=== PATIENT | male | born 1935 | race Caucasian/White ===

== ENCOUNTER 2020-06-28 17:11 | Emergency (ER) | payer MEDICARE, SELFPAY ==
[2020-06-28 18:10] VITALS: BP 129/75; PULSE 82; RESP 18; TEMP 36.8; O2SAT 99; BMI 29.1
[2020-06-28 18:56] LABS: Add Manual Diff / Slide Review NO; Basophils Absolute Auto 0 /uL (0-100); Basophils Percent Auto 0.5 % (0-2); Eosinophils Absolute Auto 0 /uL (0-450); Eosinophils Percent Auto 0.7 % (2-4); Hematocrit 45.3 % (41-53); Hemoglobin 15.2 g/dL (13.5-17.5); Lymphocytes Absolute Auto 600 /uL (1100-4500); Mean Corpuscular HGB Conc 33.5 % (30-36); Mean Corpuscular Hemoglobin 32.7 PG (26-34); Mean Corpuscular Volume 97.7 fL (80-100); Monocytes Absolute Auto 600 /uL (0-900); Monocytes Percent Auto 8.4 % (3-14); Neutrophils Absolute Auto 6100 /uL (1500-7000); Neutrophils Percent Auto 82.4 % (50-75); Platelet Count 120 X10^3/uL (150-400); Red Blood Cell Count 4.64 X10^6/uL (4.5-5.9); White Blood Cell Count 7.4 X10^3/uL (4.5-11.0)
[2020-06-28 19:04] LABS: INR 2.3 (0.9-1.3); Prothrombin Time 26.3 SECONDS (10.1-12.7)
[2020-06-28 19:07] LABS: PTT Partial Thromboplastin Tim 48 SECONDS (26.4-36.2)
[2020-06-28 19:09] LABS: Alanine Aminotransferase 31 IU/L (<50); Albumin 3.8 g/dL (3.5-5.0); Albumin Globulin Ratio 1.2 (1.0-2.8); Alkaline Phosphatase 67 U/L (38-126); Aspartate Aminotransferase 28 IU/L (17-59); BUN Creatinine Ratio 16.2 (6-22); Bilirubin Total 0.8 mg/dL (0.2-1.3); Blood Urea Nitrogen 23 mg/dL (9-20); Calcium 8.8 mg/dL (8.4-10.2); Carbon Dioxide 24 mmol/L (22-32); Chloride 111 mmol/L (98-107); Creatine Kinase 55 U/L (55-170); Estimated Glomerular Filt Rate 47.5 mL/min (>60); Globulin 3.1 g/dL (1.7-4.1); Glucose 103 mg/dL (80-110); HEMOLYSIS < 15 (0-50); Lipase 79 U/L (23-300); Potassium 3.9 mmol/L (3.4-5.1); Sodium 138 mmol/L (137-145); Total Protein 6.9 g/dL (6.3-8.2)
[2020-06-28 19:20] LABS: Troponin I < 0.012 ng/mL (0.01-0.034)
[2020-06-28 21:25] VITALS: BP 139/68; PULSE 70; RESP 18; O2SAT 96
[2020-06-28 22:30] VITALS: BP 117/55; PULSE 69; O2SAT 96
[2020-06-28 23:30] VITALS: BP 126/60; PULSE 64; O2SAT 94
[2020-06-28] MEDS: chlordiazePOXIDE 25 MG CAPSULE PO ×2 (23:37→23:47)
[2020-06-28] MEDS: MORPHINE IR 15 MG TABLET PO (23:37)
--- NOTE | 2020-06-29 00:13 | ED.EXTPRO ---
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 Apparently had a cellulitis of the left ankle and was treated at [facility] 14 months ago. Three weeks ago he had a cellulitis the left hand again treated with Keflex. [place] that things were getting better. Over last week he has noticed that wrist hands and feet have all been a bit more swollen and tender than previously. Tonight he was complaining of increasing pains the left side of his ankle and presents concerned that he is developing another episode of cellulitis. Related Data Home Medications Medication Instructions Recorded Confirmed prednisone 4 mg PO #0 04/03/16 morphine 15 mg PO Q6HP PRN #0 tab 04/06/16 06/28/20 betamethasone dipropionate 0.05 % TOPICAL PRN PRN 06/28/20 06/28/20 chlordiazepoxide HCl 25 mg PO BID 06/28/20 06/28/20 diclofenac sodium 1 % TOPICAL PRN PRN 06/28/20 06/28/20 warfarin 5 mg PO DAILY 06/28/20 06/28/20 Previous Rx's Medication Instructions Recorded omeprazole 20 mg PO BID #60 tab 04/07/16 cephalexin 500 mg PO TID #21 cap 06/29/20 Allergies Allergy/AdvReac Type Severity Reaction Status Date / Time ciprofloxacin AdvReac Unknown NEUROPATHY Verified 06/28/20 18:18 TO FEET fluroquinolones Allergy Severe NEUROPATHY Uncoded 06/28/20 18:18 TO FEET. Review of Systems Review of Systems Narrative: Pertinent positive and negative findings as per HPI Remainder of review of systems is otherwise unremarkable for Constitutional: Fevers, chills, weakness ENT: No sore throat, neck pain, ear pain CV: Chest pain, palpitations, dyspnea on exertion Respiratory: Cough, wheeze, dyspnea GI: Nausea, vomiting, diarrhea, change in bowel habits, black or bloody stools : Dysuria, hematuria, flank pain MS: Muscle weakness, Skin: Rashes, nonhealing lesions Neuro: Syncope, dizziness, tingling Patient History Medical History Anticoagulated on Coumadin (Acute) Cellulitis (Acute) Social History Smoking Status: Never smoker Smoking Status: Never smoker alcohol intake frequency: 0-2 drinks per day Substance Use Type: does not use Exam Narrative Exam Narrative: General: Healthy appearing, in no acute distress. Able to give a are rambling and extended history. Well-nourished well-developed HEENT: Moist mucous membranes, normal sclera with reactive pupils, Neck: No JVD, supple Respiratory: Lungs are clear to auscultation, no wheezing no rales no rhonchi. Full and symmetrical air movement Cardiac: Regular rate and rhythm no murmurs no bruits Abdomen: Soft nontender good bowel tones, no flank pain Skin: Warm and dry, quite thin with hemosiderin deposits over the hands with no increased redness. Mild erythema and warmth in the lateral aspect of the ankle approximately 4 x 8 cm with no abscess. Neurologic: Grossly neurologically intact with no obvious asymmetries or abnormalities Extremities: No trauma, well perfused. Mild edema with with wrists bilaterally. Mild ankle edema bilaterally without chronic venous stasis changes Psych: Cooperative, slowed speech, tangential difficulty with focus Initial Vital Signs Initial Vital Signs: Vital Signs Temperature 98.3 F 06/28/20 18:10 Pulse Rate 82 06/28/20 18:10 Respiratory Rate 18 06/28/20 18:10 Blood Pressure 129/75 06/28/20 18:10 Pulse Oximetry 99 06/28/20 18:10 Course Orders Ordered: ED Orders 06/28/20 18:19 EKG-12 Lead Stat 06/28/20 18:49 Complete Blood Count AUTO DIFF Stat Comprehensive Metabolic Panel Stat Lipase Stat Partial Thromboplastin Time Stat Prothrombin Time INR Stat Troponin & CK Cardiac Panel Stat Discontinued Medications Chlordiazepoxide HCl (Librium) 25 mg PO NOW ONE Stop: 06/28/20 22:59 Last Admin: 06/28/20 23:37 Dose: 25 mg Documented by: AG Chlordiazepoxide HCl (Librium) 25 mg PO NOW ONE Stop: 06/28/20 23:25 Last Admin: 11/13/20 23:47 Dose: 25 mg Documented by: AG Ceftriaxone Sodium/Dextrose (Rocephin) 1 gm in 50 mls @ 100 mls/hr IV NOW ONE Stop: 06/29/20 01:03 Last Infusion: 06/29/20 01:10 Dose: 0 mls/hr Documented by: Admin: 06/29/20 00:40 Dose: 100 mls/hr Documented by: GABE Morphine Sulfate (Morphine Ir) 15 mg PO NOW ONE Stop: 06/28/20 23:00 Last Admin: 06/28/20 23:37 Dose: 15 mg Documented by: AG Vital Signs Vital signs: Vital Signs - 8 hr 06/28/20 21:25 06/28/20 22:30 06/28/20 23:30 Pulse Rate 70 69 64 Respiratory Rate 18 Blood Pressure 139/68 117/55 L 126/60 Pulse Oximetry 96 96 94 06/29/20 00:47 Pulse Rate 67 Respiratory Rate 16 Blood Pressure 147/64 H Pulse Oximetry 94 MDM - Extremity (Nontraumatic) Medical Records Attestation: I reviewed the patient's medical records. Lab Data Attestation: I reviewed the patient's lab results. Result diagrams: 06/28/20 18:49 06/28/20 18:49 Labs: Lab Results 06/28/20 06/28/20 06/28/20 Range/Units 18:49 18:49 18:49 WBC 7.4 (4.5-11.0) X10^3/uL RBC 4.64 (4.5-5.9) X10^6/uL Hgb 15.2 (13.5-17.5) g/dL Hct 45.3 (41-53) % MCV 97.7 (80-100) fL MCH 32.7 (26-34) PG MCHC 33.5 (30-36) % RDW 14.0 (11.6-14.8) % Plt Count 120 L (150-400) X10^3/uL Neut % (Auto) 82.4 H (50-75) % Lymph % (Auto) 8.0 L (25-40) % [place] % (Auto) 8.4 (3-14) % Eos % (Auto) 0.7 L (2-4) % Baso % (Auto) 0.5 (0-2) % Neut # (Auto) 6100 (1148-2046) /uL Lymph # (Auto) 600 L (6752-6206) /uL [place] # (Auto) 600 (0-900) /uL Eos # (Auto) 0 (0-450) /uL Baso # (Auto) 0 (0-100) /uL PT 26.3 H (10.1-12.7) SECONDS INR 2.3 H (0.9-1.3) APTT 48 H (26.4-36.2) SECONDS Sodium 138 (137-145) mmol/L Potassium 3.9 (3.4-5.1) mmol/L Chloride 111 H (98-107) mmol/L Carbon Dioxide 24 (22-32) mmol/L BUN 23 H (9-20) mg/dL Creatinine 1.42 H (0.66-1.25) mg/dL Estimated GFR 47.5 L (>60) mL/min BUN/Creatinine Ratio 16.2 (6-22) Glucose 103 (80-110) mg/dL Calcium 8.8 (8.4-10.2) mg/dL Total Bilirubin 0.8 (0.2-1.3) mg/dL AST 28 (17-59) IU/L ALT 31 (<50) IU/L Alkaline Phosphatase 67 (38-126) U/L Total Creatine Kinase 55 (55-170) U/L CK-MB (CK-2) TNP CK-MB (CK-2) Rel Index TNP Troponin I < 0.012 (0.01-0.034) ng/mL Total Protein 6.9 (6.3-8.2) g/dL Albumin 3.8 (3.5-5.0) g/dL Globulin 3.1 (1.7-4.1) g/dL Albumin/Globulin Ratio 1.2 (1.0-2.8) Lipase 79 (23-300) U/L ECG Data Attestation EKG: I personally reviewed and interpreted this ECG as follows: Interpretation: Sinus rhythm at a rate of 75 Normal intervals, normal axis No acute ischemic changes MDM Narrative Medical decision making narrative: 84-year-old gentleman with mild peripheral edema prior history of cellulitis concerned that he again has cellulitis. Minimal erythema on the lateral portion of the ankle with slight increased pain. Certainly no evidence of sepsis necrotizing fasciitis, renal failure, congestive heart failure, liver failure or other explanations for the mild edema. I believe the cognitive slowing and tangential thinking is due to the recently administered 15 mg of morphine and 50 mg of Librium. He is given 2 g of IV ceftriaxone in the emergency department and discharged home with a week of Keflex. Will encourage him to follow-up with his primary care physician. He is safe for home discharge Discharge Plan Departure Patient Disposition: Home Clinical Impression: Cellulitis Qualifiers: Site of cellulitis: extremity Site of cellulitis of extremity: lower extremity Laterality: left Qualified Code(s): L03.116 - Cellulitis of left lower limb Edema Qualifiers: Edema type: unspecified Qualified Code(s): R60.9 - Edema, unspecified Instructions: DI for Cellulitis -- Adult Activity Restrictions/Additional Instructions: Thank you for coming in today It does look like you are developing a mild cellulitis on the outside of your left ankle. I have begun antibiotics in the emergency room to treat this. You will need 7 additional days of oral antibiotics. I have given you a prescription for cephalexin that will need to be filled today. It would be best to take your 1st pill later this afternoon. I do not have a good explanation for that increased swelling your noticing around her ankles and wrists that seem to be causing increasing pain in your hands and feet. Fortunately I do not see signs of overwhelming infection (sepsis), nor kidney failure, liver failure or heart failure. Unfortunately there are things that I am not able to completely figure out in the emergency room and they will require your primary care doctor to address. Please follow-up with your primary care doctor within the next week I hope you feel better Prescriptions: New cephalexin 500 mg capsule 500 mg PO TID Qty: 21 RF: 0 No Action prednisone 1 MG tablet 4 mg PO Qty: 0 RF: 0 morphine 15 MG tablet 15 mg PO Q6HP PRN (Reason: Pain (Scale Score 1-3)) Qty: 0 RF: 0 omeprazole 20 MG tablet,delayed release (DR/EC) 20 mg PO BID Qty: 60 RF: 0 chlordiazepoxide HCl 25 mg capsule 25 mg PO BID RF: 0 warfarin 5 mg tablet 5 mg PO DAILY RF: 0 betamethasone dipropionate 0.05 % ointment 0.05 % TOPICAL PRN PRN (Reason: Pain (Scale Score 1-3)) RF: 0 diclofenac sodium 1 % gel 1 % TOPICAL PRN PRN (Reason: pain) RF: 0 Referrals: Yuriy Landa MD [Primary Care Provider] -
[2020-06-29] MEDS: CEFTRIAXONE 1 GM/50 ML FROZ.PIGGY IV (00:40)
[2020-06-29 00:47] VITALS: BP 147/64; PULSE 67; RESP 16; O2SAT 94
[2020-06-29 04:14] VITALS: BP 121/61; PULSE 65; RESP 18; O2SAT 96
== END 2020-06-29 04:15 | disposition home or self-care (01) ==
PROVIDERS: Emergency Medicine; Emergency Provider Emergency Medicine; PCP Family Medicine
DX: L03.116 Cellulitis of left lower limb (principal); R60.9 Edema, unspecified; I82.409 Acute embolism and thrombosis of unspecified deep veins of unspecified lower extremity; Z79.01 Long term (current) use of anticoagulants
CPT/HCPCS: 36415; 80053; 82550; 83690; 84484; 85025; 85610; 85730; 93005; 93041; 96365; 99284

== ENCOUNTER → 2021-01-06 10:04 | Outpatient (CLI) | payer MEDICARE, OTHER, SELFPAY ==
[2021-01-06 19:13] LABS: BUN Creatinine Ratio 23.1 (6-22); Blood Urea Nitrogen 36 mg/dL (9-20); Calcium 9.1 mg/dL (8.4-10.2); Carbon Dioxide 21 mmol/L (22-32); Chloride 111 mmol/L (98-107); Estimated Glomerular Filt Rate 42.5 mL/min (>60); Glucose 92 mg/dL (80-110); HEMOLYSIS < 15 (0-50); Potassium 3.8 mmol/L (3.4-5.1); Sodium 141 mmol/L (137-145)
== END ==
PROVIDERS: Internal Medicine Rheumatology; PCP Family Medicine; Visit Provider Family Medicine
DX: R74.8 Abnormal levels of other serum enzymes (principal)
CPT/HCPCS: 80048

== ENCOUNTER → 2021-02-06 08:08 | Outpatient (CLI) | payer MEDICARE, OTHER, SELFPAY ==
[2021-02-06 19:30] LABS: INR 3.4 (0.9-1.3); Prothrombin Time 39.6 SECONDS (10.1-12.7)
[2021-02-06 19:35] LABS: Alanine Aminotransferase 52 IU/L (<50); Albumin 3.3 g/dL (3.5-5.0); Albumin Globulin Ratio 1.6 (1.0-2.8); Alkaline Phosphatase 56 U/L (38-126); Aspartate Aminotransferase 28 IU/L (17-59); BUN Creatinine Ratio 23.6 (6-22); Bilirubin Total 0.4 mg/dL (0.2-1.3); Blood Urea Nitrogen 34 mg/dL (9-20); Carbon Dioxide 23 mmol/L (22-32); Chloride 113 mmol/L (98-107); Estimated Glomerular Filt Rate 46.6 mL/min (>60); Globulin 2.1 g/dL (1.7-4.1); Glucose 85 mg/dL (80-110); HEMOLYSIS < 15 (0-50); Potassium 3.6 mmol/L (3.4-5.1); Sodium 144 mmol/L (137-145); Total Protein 5.4 g/dL (6.3-8.2)
[2021-02-06 19:54] LABS: Hematocrit 42.3 % (41-53); Hemoglobin 13.8 g/dL (13.5-17.5); Mean Corpuscular HGB Conc 32.7 % (30-36); Mean Corpuscular Hemoglobin 31.2 PG (26-34); Mean Corpuscular Volume 95.3 fL (80-100); Platelet Count 213 X10^3/uL (150-400); Red Blood Cell Count 4.44 X10^6/uL (4.5-5.9); Red Cell Distribution Width 16.8 % (11.6-14.8); White Blood Cell Count 8.9 X10^3/uL (4.5-11.0)
[2021-02-06 19:55] LABS: Add Manual Diff / Slide Review YES
[2021-02-06 20:03] LABS: Thyroid Stimulating Hormone 3.43 uIU/mL (0.47-4.68)
[2021-02-06 20:32] LABS: Erythrocyte Sedimentation Rate 15 MM/HR (0-15)
[2021-02-06 21:17] LABS: Neutrophils Absolute Manual 5607 /uL (3000-5900); Total Cells Counted 100
[2021-02-06 21:18] LABS: Platelet Estimate Adequate on smear; RBC Morphology Normal Morphology
== END ==
PROVIDERS: PCP Family Medicine; Referring Provider Family Medicine; Visit Provider Family Medicine
DX: I49.9 Cardiac arrhythmia, unspecified (principal); R33.9 Retention of urine, unspecified; G89.4 Chronic pain syndrome; R31.9 Hematuria, unspecified; Z51.81 Encounter for therapeutic drug level monitoring; Z79.01 Long term (current) use of anticoagulants
CPT/HCPCS: 80053; 84443; 85007; 85025; 85610; 85651

== ENCOUNTER → 2021-04-24 07:55 | Outpatient (CLI) | payer MEDICARE, OTHER, SELFPAY ==
--- NOTE | 2021-04-24 | DI.ECHO.S_ITS ---
[facility]---------+ [facility] +---------+ : : [address] : : : : [id number] : : : : Phone: [phone]+ Echocardiogram Report + + :Name: ORVILLE NEVILLE Study Date: 04/24/2021 Height: 71 in : :[facility] ReadingLocation: Weight: 195 lb : : Gender: Male BSA: 2.1 m2 : :: 1935 Age: 85 yrs BP: 137/82 mmHg: :Reason For Study: Arrhythmia : :Ordering Physician: MARIO, : :LIZ Performed By: Leon Gilliam : :Referring: LIZ MARTIN : + + Interpretation Summary 1) Normal left ventricular thickness, size, wall motion, and systolic function (EF 55-60%). 2) Normal right ventricular size and function. 3) There is mild aortic regurgitation. 4) No prior Echo available for comparison. Procedure: A two-dimensional transthoracic echocardiogram with color flow and Doppler was performed. The study quality was technically adequate. There is no prior echocardiogram noted for this patient. Left Ventricle: The left ventricle is normal in size and wall thickness. Left ventricular systolic function is normal. The ejection fraction is estimated to be 55-60%. There are no focal wall motion abnormalities. Diastolic parameters suggest probable normal left ventricular diastolic function and normal filling pressures. Right Ventricle: The right ventricle is normal in size and function. Atria: Both atria are normal in size. There is no Doppler evidence for an interatrial shunt. Mitral Valve: The mitral valve is normal in structure and function. There is trace mitral regurgitation. Aortic Valve: There is mild aortic valve sclerosis. There is no aortic valve stenosis. There is mild aortic regurgitation. Tricuspid Valve: The tricuspid valve is normal in structure and function. There is mild tricuspid regurgitation. The right ventricular systolic pressure is estimated to be at least 27 mmHg based on an estimated right atrial pressure of 3 mm Hg. Pulmonic Valve: The pulmonic valve is not well visualized. Great Vessels: The aortic root is normal size. The dimensions of the ascending aorta are normal. The IVC is of normal diameter and collapses greater than 50% with a sniff. This suggests a low right atrial pressure of 3 mm Hg. Pericardium/ Pleura There is no pericardial effusion. There is no pleural effusion. MMode/2D Measurements & Calculations LVIDd: 3.6 cm LVOT diam: 2.0 cm LVIDs: 2.6 cm Ao root diam: 3.6 cm FS: 27.8 % asc Aorta Diam: 3.3 cm IVSd: 0.90 cm LVPWd: 0.80 cm LV morin. diameter/BSA (cm/m^2): 1.7 LV sys. diameter/BSA (cm/m^2): 1.2 LA dimension: 1.9 cm RA long axis: 4.7 cm LA A2 area: 11.2 cm2 LA A4 area: 12.2 cm2 LA length (vol): 3.8 cm LA vol: 30.2 ml LA vol index: 14.5 ml/m2 TAPSE_phl: 2.6 cm Doppler Measurements & Calculations Ao V2 max: 121.0 cm/sec LVOT Max Dilan: 104.0 cm/sec Ao V2 mean: 83.5 cm/sec LV V1 max P.3 mmHg Ao max P.0 mmHg LV V1 VTI: 19.6 cm Ao mean P.0 mmHg JAZMINE(I,D): 2.9 cm2 Ao V2 VTI: 21.6 cm JAZMINE(V,D): 2.7 cm2 sev ratio: 0.91 JAZMINE indexed to BSA (cm^2/m^2): 1.4 MV E max dilan: 57.8 cm/sec TR max dilan: 246.0 cm/sec MV A max dilan: 67.7 cm/sec TR max P.2 mmHg MV E/A: 0.85 PA V2 max: 128.0 cm/sec Med Peak E' Dilan: 5.8 cm/sec PA V2 mean: 88.7 cm/sec E/E' med: 10.0 PA mean P.0 mmHg Lat Peak E' Dilan: 10.9 cm/sec PA pr(Accel): 47.0 mmHg E/E' lat: 5.3 E/e' average: 7.6 MV dec time: 0.23 sec SV(LVOT): 61.6 ml AV VR_phl: 0.86 JAZMINE(VTI)/BSA_phl: 1.4 MV P1/2t-pr_phl: 67.0 msec Reading Physician:12:43 PM
== END ==
PROVIDERS: PCP Family Medicine; Referring Provider Internal Medicine Cardiovascular Disease; Visit Provider Internal Medicine Cardiovascular Disease
DX: I08.2 Rheumatic disorders of both aortic and tricuspid valves (principal); I49.9 Cardiac arrhythmia, unspecified
CPT/HCPCS: 93306

== ENCOUNTER 2021-04-24 12:48 | Emergency (ER) | payer MEDICARE, OTHER, SELFPAY ==
[2021-04-24] VITALS (7 sets, daily range): BP systolic 119–153; BP diastolic 60–86; PULSE 73–91; RESP 18–27; TEMP 36.3; O2SAT 96–99
--- NOTE | 2021-04-24 13:04 | DI.RAD.S_ITS ---
PROCEDURE: XR CHEST 1V INDICATIONS: chest pain TECHNIQUE: One view of the chest was acquired. COMPARISON: [facility], , CHEST 1 VIEW, 04/05/2016, 14:07. FINDINGS: Surgical changes and devices: None. Lungs and pleura: Lungs are clear. No pleural effusions or pneumothorax. Mediastinum: Mediastinal contours appear normal. Heart size is normal. Bones and chest wall: No suspicious bony lesions. Overlying soft tissues appear unremarkable. IMPRESSION: No acute cardiopulmonary pathology. Dictated by: Danie Ayon M.D. on 04/24/2021 at 13:46 Approved by: Danie Ayon M.D. on 04/24/2021 at 13:53
--- NOTE | 2021-04-24 14:30 | ED_ITS ---
HPI - Recheck/Abnormal Lab/Rx General Chief Complaint: Recheck/Abnormal Lab/Rx Stated Complaint: Abnormal Echo- sent by Time Seen by Provider: 04/24/21 14:04 Source: patient and family Mode of arrival: Ambulatory Limitations: no limitations History of Present Illness HPI narrative: Patient is an 85-year-old male. Had an echocardiogram performed this morning as an outpatient. This is ordered by his inspector air carrier. He also has a history of rheumatoid arthritis. Has had swelling in bilateral lower extremities for the past several days/weeks and over the past 3 days has had weeping from his lower extremities. Has also had pain in his lower back but this is not new for him. Somewhat difficult to obtain an exact history of why he is here however what I can get from talking with the patient and his he was informed to come to the emergency department because initially what was described as some then abnormal bite his echocardiogram. He denies chest pain. No shortness of breath. It seems that he contacted his sanitation laborer because of the swelling in his lower extremities and he was sent here because of that swelling as well. He is not on diuretics. Related Data Home Medications Medication Instructions Recorded Confirmed betamethasone dipropionate 0.05 % 0.05 % TOPICAL PRN PRN 06/28/20 02/03/21 topical ointment diclofenac sodium 1 % topical gel 1 % TOPICAL PRN PRN 06/28/20 02/03/21 warfarin 5 mg tablet 5 mg PO DAILY 06/28/20 02/03/21 ergocalciferol (vitamin D2) PO 01/11/21 02/03/21 lidocaine 5 % topical patch 1 patch TOPICAL DAILY 01/11/21 02/03/21 multivitamin (Daily Multi-Vitamin) 1 tab PO DAILY 01/11/21 02/03/21 vitamin B complex [Vitamins B PO 01/11/21 02/03/21 Complex] duloxetine 60 mg capsule,delayed 60 mg PO DAILY 01/14/21 02/03/21 release nystatin TOPICAL 01/14/21 02/03/21 prednisolone 5 mg PO 03/06/21 03/06/21 prednisone 1 mg tablet 10 mg PO #0 tab 03/06/21 03/06/21 Previous Rx's Medication Instructions Recorded diazepam 5 mg tablet (Valium) 5 mg PO BEDTIME PRN #14 tab 03/26/21 diazepam 10 mg tablet 10 mg PO TID PRN 1 Days #30 tab 04/06/21 hydrocodone 5 mg-acetaminophen 325 1 tab PO BID PRN #60 tab 04/16/21 mg tablet furosemide 20 mg tablet (Lasix) 20 mg PO DAILY #30 tab 04/24/21 Allergies Allergy/AdvReac Type Severity Reaction Status Date / Time ciprofloxacin Allergy Unknown It made Verified 03/06/21 13:35 me feel awful - NEUROPATHY TO FEET - N/V fluoxetine Allergy Unknown Verified 03/06/21 13:35 levofloxacin Allergy Unknown Pain,Diarrhea, Verified 03/06/21 13:35 Nausea,Vomiting NSAIDS (Non-Steroidal Allergy Unknown Guts on Verified 03/06/21 13:35 Anti-Inflamma fire tramadol Allergy Unknown g Verified 03/06/21 13:35 fluroquinolones Allergy Severe NEUROPATHY Uncoded 03/06/21 13:35 TO FEET. Review of Systems Constitutional Comments: No fevers Cardiovascular Cardiovascular: Reports system reviewed and no additional complaints, except as documented Respiratory Respiratory: Reports system reviewed and no additional complaints, except as documented Musculoskeletal Musculoskeletal: Reports as per HPI Integumentary/Breasts Skin/Breast: Reports system reviewed and no additional complaints, except as documented and Reports as per HPI Neurologic Neurologic: Reports system reviewed and no additional complaints, except as documented Hematologic/Lymphatic On Anticoagulants: No Patient History Medical History Acute eczema of hand Alcohol dependence, uncomplicated Anticoagulated on Coumadin Anxiety Bacteriuria Benign prostatic hyperplasia with lower urinary tract symptoms Cellulitis Chronic kidney disease, stage 3 unspecified Hypercalcemia Macrocytosis Malignant melanoma of right upper limb, including shoulder Malignant melanoma of scalp and neck Malignant neoplasm of penis, unspecified Multiple fractures of ribs, left side, initial encounter for closed fracture Opioid dependence, uncomplicated Other specified diseases of blood and blood-forming organs Personal history of other malignant neoplasm of skin Phlebitis and thrombophlebitis of left femoral vein Polyneuropathy, unspecified Presence of ileostomy Repeated falls Rheumatoid arthritis Sedative, hypnotic or anxiolytic dependence, uncomplicated Spinal stenosis, 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, 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 Thrombocytopenia, unspecified 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, left knee Unspecified mood [affective] disorder Surgical History (Updated 01/11/21 @ 10:58 by Argenis Osorio) H/O ileostomy H/O laminectomy H/O total colectomy Social History Smoking Status: Never smoker Smoking Status: Never smoker alcohol intake frequency: 0-2 drinks per day Substance Use Type: does not use Exam Initial Vital Signs Initial Vital Signs: Vital Signs Temperature 97.4 F L 04/24/21 12:54 Pulse Rate 91 H 04/24/21 12:54 Respiratory Rate 18 04/24/21 12:54 Blood Pressure 133/70 04/24/21 12:54 Pulse Oximetry 99 04/24/21 12:54 Const General: cooperative HENMT Head: normal to inspection and normocephalic Resp Effort & Inspection: normal respiratory effort Cardio Rate: regular rate Skin Other: Does have a couple small skin wounds in his bilateral lower extremities but no signs of cellulitis. Neuro General: patient alert, patient awake, patient oriented x3 and moves all extre mities Extrem Other: Bilateral lower extremity edema from his mid foot to just distal to his knees. Psych Appearance: grossly normal and well kempt Course Orders Ordered: ED Orders 04/24/21 13:04 XR chest 1V Stat EKG-12 Lead Stat 04/24/21 14:17 BNP [NT-proBNP (BNP-Adult 18+)] Stat Complete Blood Count AUTO DIFF Stat Comprehensive Metabolic Panel Stat Lipase Stat Troponin & CK Cardiac Panel Stat Discontinued Medications Furosemide (Furosemide 40 Mg/4 Ml Vial) 40 mg IV NOW ONE Stop: 04/24/21 15:43 Last Admin: 04/24/21 16:03 Dose: 40 mg Documented by: JANETT Oxycodone/Acetaminophen (Oxycodone/Acetaminophen 5/325 Tablet) 1 tab PO NOW ONE Stop: 04/24/21 14:32 Last Admin: 04/24/21 14:36 Dose: 1 tab Documented by: JANETT Vital Signs Vital signs: Vital Signs - 8 hr 04/24/21 12:54 04/24/21 14:05 04/24/21 14:06 Temperature 97.4 F L Pulse Rate 91 H 78 83 Respiratory Rate 18 Blood Pressure 133/70 132/69 Pulse Oximetry 99 96 97 04/24/21 14:30 04/24/21 15:00 04/24/21 15:30 Temperature Pulse Rate 88 73 90 Respiratory Rate 22 19 27 H Blood Pressure 153/78 H 119/60 Pulse Oximetry 97 96 04/24/21 15:31 Temperature Pulse Rate 91 H Respiratory Rate Blood Pressure 134/86 Pulse Oximetry 97 MDM - Recheck/Abnormal Lab/Rx Medical Records Attestation: I reviewed the patient's medical records. Lab Data Attestation: I reviewed the patient's lab results. Result diagrams: 04/24/21 14:17 04/24/21 14:17 Labs: Lab Results 04/24/21 04/24/21 Range/Units 14:17 14:17 WBC 9.2 (4.5-11.0) X10^3/uL RBC 4.29 L (4.5-5.9) X10^6/uL Hgb 13.8 (13.5-17.5) g/dL Hct 42.0 (41-53) % MCV 97.8 (80-100) fL MCH 32.1 (26-34) PG MCHC 32.8 (30-36) % RDW 14.7 (11.6-14.8) % Plt Count 167 (150-400) X10^3/uL Neut % (Auto) 89.4 H (50-75) % Lymph % (Auto) 5.5 L (25-40) % [place] % (Auto) 4.6 (3-14) % Eos % (Auto) 0.3 L (2-4) % Baso % (Auto) 0.2 (0-2) % Neut # (Auto) 8200 H (0549-7760) /uL Lymph # (Auto) 500 L (0420-8430) /uL [place] # (Auto) 400 (0-900) /uL Eos # (Auto) 0 (0-450) /uL Baso # (Auto) 0 (0-100) /uL Sodium 141 (137-145) mmol/L Potassium 4.3 (3.4-5.1) mmol/L Chloride 115 H (98-107) mmol/L Carbon Dioxide 21 L (22-32) mmol/L BUN 41 H (9-20) mg/dL Creatinine 1.53 H (0.66-1.25) mg/dL Estimated GFR 43.5 L (>60) mL/min BUN/Creatinine Ratio 26.8 H (6-22) Glucose 97 (80-110) mg/dL Calcium 9.1 (8.4-10.2) mg/dL Total Bilirubin 0.3 (0.2-1.3) mg/dL AST 34 (17-59) IU/L ALT 43 (<50) IU/L Alkaline Phosphatase 50 (38-126) U/L Total Creatine Kinase 60 (55-170) U/L CK-MB (CK-2) TNP CK-MB (CK-2) Rel Index TNP Troponin I < 0.012 (0.01-0.034) ng/mL NT-Pro-B Natriuret Pep 169 (<450) pg/mL Total Protein 6.5 (6.3-8.2) g/dL Albumin 4.1 (3.5-5.0) g/dL Globulin 2.4 (1.7-4.1) g/dL Albumin/Globulin Ratio 1.7 (1.0-2.8) Lipase 635 H (23-300) U/L Imaging Data Chest x-ray: Radiologist's Impression: [address] [address] XRay Report Signed Patient: Osmar Johnson MR#: [id number] : 1935 Acct:[id number] Age/Sex: 85 / M Date of Service: 04/24/21 Loc: Accession Number: [id number] ?? Procedure: XR chest 1V Ordering Provider: Yuriy Jackson D.O. PROCEDURE:? XR CHEST 1V ? INDICATIONS:? chest pain ? TECHNIQUE:? One view of the chest was acquired.? ? COMPARISON:? [facility], , CHEST 1 VIEW, 04/05/2016, 14:07. ? FINDINGS:? ? Surgical changes and devices:? None.? ? Lungs and pleura:? Lungs are clear.? No pleural effusions or pneumothorax.? ? Mediastinum:? Mediastinal contours appear normal.? Heart size is normal.? ? Bones and chest wall:? No suspicious bony lesions.? Overlying soft tissues appear unremarkable.? ? IMPRESSION:? No acute cardiopulmonary pathology. ? ? Dictated by: Danie Ayon M.D. on 04/24/2021 at 13:46 ? ? Approved by: Danie Ayon M.D. on 04/24/2021 at 13:53?? ECG Data Attestation: I personally reviewed and interpreted this ECG as follows: Interpretation: Sinus rhythm Ventricular rate 82 Sinus rhythm with Normal QRS Normal QTC No ST T wave changes MDM Narrative Medical decision making narrative: His labs today are unremarkable. Review of his echocardiogram does not show any signs of any acute pathology. He is not clinically in heart failure. His BNP is unremarkable. His lower extremity swelling is not consistent with cellulitis. He has had blood clots in the past but he is on Coumadin and I have low suspicion for blood clots based on his presentation today. Reassured him of his symptoms. We will put him on Lasix for the next couple days. Will have him contact his primary doctor and also his inspector air carrier to order the echocardiogram for a follow-up. He was given return precautions. Both he and his expressed understanding and agreement. Discharge Plan Departure Patient Disposition: Home Clinical Impression: Bilateral lower extremity edema Instructions: Edema (Alternative Therapy), Edema Activity Restrictions/Additional Instructions: I do recommend that you start taking the Lasix as directed. Contact your primary doctor and also your inspector air carrier for a follow-up. Return to the em ergency department for any new or worsening symptoms Prescriptions: New furosemide [Lasix] 20 mg tablet 20 mg PO DAILY Qty: 30 RF: 0 No Action prednisone 1 mg tablet 10 mg PO Qty: 0 RF: 0 diazepam [Valium] 5 mg tablet 5 mg PO BEDTIME PRN (Reason: sedation) Qty: 14 RF: 0 diazepam 10 mg tablet 10 mg PO TID PRN (Reason: sedation) 1 Days Qty: 30 RF: 1 hydrocodone-acetaminophen 5-325 mg tablet 1 tab PO BID PRN (Reason: pain) Qty: 60 RF: 0 warfarin 5 mg tablet 5 mg PO DAILY RF: 0 betamethasone dipropionate 0.05 % ointment 0.05 % TOPICAL PRN PRN (Reason: Pain (Scale Score 1-3)) RF: 0 diclofenac sodium 1 % gel 1 % TOPICAL PRN PRN (Reason: pain) RF: 0 prednisolone 5 mg PO RF: 0 duloxetine 60 mg capsule,delayed release(DR/EC) 60 mg PO DAILY RF: 0 nystatin topical RF: 0 vitamin B complex PO RF: 0 lidocaine 5 % adhesive patch,medicated 1 patch topical DAILY RF: 0 multivitamin [Daily Multi-Vitamin] Tablet 1 tab PO DAILY RF: 0 ergocalciferol (vitamin D2) PO RF: 0 Referrals: Adelso Leal MD [Primary Care Provider] -
[2021-04-24 14:35] LABS: Add Manual Diff / Slide Review NO; Basophils Absolute Auto 0 /uL (0-100); Basophils Percent Auto 0.2 % (0-2); Eosinophils Absolute Auto 0 /uL (0-450); Eosinophils Percent Auto 0.3 % (2-4); Hemoglobin 13.8 g/dL (13.5-17.5); Lymphocytes Absolute Auto 500 /uL (1100-4500); Lymphocytes Percent Auto 5.5 % (25-40); Mean Corpuscular HGB Conc 32.8 % (30-36); Mean Corpuscular Hemoglobin 32.1 PG (26-34); Mean Corpuscular Volume 97.8 fL (80-100); Monocytes Absolute Auto 400 /uL (0-900); Monocytes Percent Auto 4.6 % (3-14); Neutrophils Absolute Auto 8200 /uL (1500-7000); Neutrophils Percent Auto 89.4 % (50-75); Platelet Count 167 X10^3/uL (150-400); Red Blood Cell Count 4.29 X10^6/uL (4.5-5.9); Red Cell Distribution Width 14.7 % (11.6-14.8); White Blood Cell Count 9.2 X10^3/uL (4.5-11.0)
[2021-04-24] MEDS: OXYCODONE/ACETAMINOPHEN 5/325 TABLET 1 TAB PO (14:36)
[2021-04-24 14:49] LABS: Alanine Aminotransferase 43 IU/L (<50); Albumin 4.1 g/dL (3.5-5.0); Albumin Globulin Ratio 1.7 (1.0-2.8); Alkaline Phosphatase 50 U/L (38-126); Aspartate Aminotransferase 34 IU/L (17-59); BUN Creatinine Ratio 26.8 (6-22); Bilirubin Total 0.3 mg/dL (0.2-1.3); Blood Urea Nitrogen 41 mg/dL (9-20); Calcium 9.1 mg/dL (8.4-10.2); Carbon Dioxide 21 mmol/L (22-32); Chloride 115 mmol/L (98-107); Creatine Kinase 60 U/L (55-170); Estimated Glomerular Filt Rate 43.5 mL/min (>60); Globulin 2.4 g/dL (1.7-4.1); Glucose 97 mg/dL (80-110); HEMOLYSIS 24 (0-50); Lipase 635 U/L (23-300); Potassium 4.3 mmol/L (3.4-5.1); Sodium 141 mmol/L (137-145); Total Protein 6.5 g/dL (6.3-8.2)
[2021-04-24 15:01] LABS: NT-proBNP (BNP-Adult 18+) 169 pg/mL (<450); Troponin I < 0.012 ng/mL (0.01-0.034)
[2021-04-24] MEDS: FUROSEMIDE 40 MG/4 ML VIAL IV (16:03)
== END 2021-04-24 17:03 | disposition home or self-care (01) ==
PROVIDERS: Emergency Provider Emergency Medicine; PCP Family Medicine
DX: R60.0 Localized edema (principal); R07.9 Chest pain, unspecified
CPT/HCPCS: 36415; 71045; 80053; 82550; 83690; 83880; 84484; 85025; 93005; 93306; 96374; 99284; J1940

== ENCOUNTER → 2021-05-07 10:25 | Outpatient (CLI) | payer MEDICARE, OTHER, SELFPAY ==
--- NOTE | 2021-05-07 | DI.US.S_ITS ---
PROCEDURE: US PERIPH VENOUS LOW EXTREM BI INDICATIONS: EDEMA; HX DVT TECHNIQUE: Real-time imaging, as well as color and pulse Doppler interrogation, were performed of the deep veins of both legs from the inguinal ligament to the popliteal fossa. COMPARISON: [facility], , PERIP.NORA EXT BILAT, 04/15/2016, 10:04. FINDINGS: Right: The common femoral, femoral and popliteal veins are normally compressible, and free of intraluminal thrombus. Color and pulse Doppler demonstrate normal phasic intravascular flow. There is normal augmentation response to distal compression maneuver. Left: A small amount of chronic, nonocclusive thrombus can be seen within the common femoral vein. No additional findings of left-sided deep venous thrombosis can be seen. The visualized posterior tibial veins and peroneal veins are negative. 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 Dictated by: Rene Mark M.D. on 05/07/2021 at 11:45 Approved by: Rene Mark M.D. on 05/07/2021 at 11:46
== END ==
PROVIDERS: PCP Family Medicine; Referring Provider Internal Medicine Rheumatology; Visit Provider Internal Medicine Rheumatology
DX: R60.0 Localized edema (principal); I82.502 Chronic embolism and thrombosis of unspecified deep veins of left lower extremity
CPT/HCPCS: 93970

== ENCOUNTER → 2021-07-21 15:48 | Outpatient (CLI) | payer MEDICARE, OTHER, SELFPAY ==
[2021-07-22 20:04] LABS: Bilirubin Urine UA NEGATIVE (NEGATIVE); Color Urine UA YELLOW; Glucose Urine UA NEGATIVE (Negative); Ketones Urine UA NEGATIVE (NEGATIVE); Leukocyte Esterase Urine UA 2+ (NEGATIVE); Nitrite Urine UA POSITIVE (Negative); Occult Blood Urine UA TRACE-INTACT (Negative); Protein Urine UA 2+ (Negative); Specific Gravity Urine UA <=1.005 (1.000-1.035); Urobilinogen Urine UA 0.2 E.U./dL (0.2); pH Urine UA 8.5 (4.5-8.0)
[2021-07-22 20:07] LABS: Appearance Urine UA Turbid
[2021-07-22 21:09] LABS: WBC Urine 5-10/HPF (0-5/HPF)
[2021-07-22 21:10] LABS: Granular Casts Urine 1-5/LPF; RBC Urine 5-10/HPF (0-5/HPF); Squamous Epithelial Cell Urine None Seen (0-5/HPF)
[2021-07-22 21:11] LABS: Amorphous Sediment Urine 4+; Bacteria Urine Many (>30); Culture Indicated Urine Specimen Cultured; Mucus Urine 3+ (Negative); Triple Phosphate Crystal Urine Few
[2021-07-24 00:21] LABS: Vitamin B12 602 pg/mL (239-931)
== END ==
PROVIDERS: PCP Family Medicine; Referring Provider Family Medicine; Visit Provider Family Medicine
DX: Z93.2 Ileostomy status (principal); R39.15 Urgency of urination
CPT/HCPCS: 81001; 82607; 87077; 87086; 87186

== ENCOUNTER → 2021-07-23 13:29 | Outpatient (CLI) | payer MEDICARE, OTHER, SELFPAY ==
[2021-07-23 19:31] LABS: Prothrombin Time 33.9 SECONDS (10.1-12.7)
[2021-07-23 19:47] LABS: Alanine Aminotransferase 31 IU/L (<50); Albumin 3.7 g/dL (3.5-5.0); Albumin Globulin Ratio 1.5 (1.0-2.8); Alkaline Phosphatase 86 U/L (38-126); Aspartate Aminotransferase 33 IU/L (17-59); BUN Creatinine Ratio 21.9 (6-22); Bilirubin Total 0.3 mg/dL (0.2-1.3); Blood Urea Nitrogen 32 mg/dL (9-20); Calcium 9.3 mg/dL (8.4-10.2); Carbon Dioxide 22 mmol/L (22-32); Chloride 107 mmol/L (98-107); Estimated Glomerular Filt Rate 45.8 mL/min (>60); Gamma Glutamyl Transpeptidase 27 U/L (15-73); Globulin 2.4 g/dL (1.7-4.1); Glucose 117 mg/dL (80-110); HEMOLYSIS < 15 (0-50); Hemoglobin 11.8 g/dL (13.5-17.5); Lipase 231 U/L (23-300); Mean Corpuscular HGB Conc 32.9 % (30-36); Mean Corpuscular Hemoglobin 32.1 PG (26-34); Mean Corpuscular Volume 97.4 fL (80-100); Platelet Count 247 X10^3/uL (150-400); Potassium 4.2 mmol/L (3.4-5.1); Red Blood Cell Count 3.69 X10^6/uL (4.5-5.9); Red Cell Distribution Width 15.3 % (11.6-14.8); Sodium 138 mmol/L (137-145); Total Protein 6.1 g/dL (6.3-8.2); White Blood Cell Count 10.2 X10^3/uL (4.5-11.0)
[2021-07-23 20:18] LABS: Prostate Specific Antigen 2.31 ng/mL (0.10-4.00)
[2021-07-23 20:30] LABS: Neutrophils Absolute Manual 9180 /uL (3000-5900); Total Cells Counted 100
[2021-07-23 20:31] LABS: Anisocytosis 1+
== END ==
PROVIDERS: PCP Family Medicine; Visit Provider Family Medicine
DX: R60.0 Localized edema (principal); F10.20 Alcohol dependence, uncomplicated; N40.1 Benign prostatic hyperplasia with lower urinary tract symptoms; N18.30 Chronic kidney disease, stage 3 unspecified; Z51.81 Encounter for therapeutic drug level monitoring; Z79.01 Long term (current) use of anticoagulants
CPT/HCPCS: 80053; 82977; 83690; 84153; 85025; 85610

== ENCOUNTER → 2021-11-27 10:44 | Outpatient (CLI) | payer MEDICARE, OTHER, SELFPAY | PROVIDERS: PCP Family Medicine; Referring Provider Internal Medicine Rheumatology; Visit Provider Internal Medicine Rheumatology | DX: Z79.52 Long term (current) use of systemic steroids (principal); Z13.820 Encounter for screening for osteoporosis; M06.9 Rheumatoid arthritis, unspecified; M85.89 Other specified disorders of bone density and structure, multiple sites | CPT/HCPCS: 77080; 77086 ==

== ENCOUNTER → 2021-12-02 13:14 | Outpatient (CLI) | payer MEDICARE, OTHER, SELFPAY ==
[2021-12-02 18:23] LABS: Bilirubin Urine UA NEGATIVE (NEGATIVE); Color Urine UA YELLOW; Glucose Urine UA NEGATIVE (Negative); Ketones Urine UA NEGATIVE (NEGATIVE); Leukocyte Esterase Urine UA 1+ (NEGATIVE); Nitrite Urine UA NEGATIVE (Negative); Occult Blood Urine UA TRACE-LYSED (Negative); Protein Urine UA 1+ (Negative); Specific Gravity Urine UA 1.025 (1.000-1.035); Urobilinogen Urine UA 0.2 E.U./dL (0.2)
[2021-12-02 18:25] LABS: Appearance Urine UA Slightly Cloudy
[2021-12-02 19:28] LABS: Amorphous Sediment Urine 1+; Bacteria Urine Few (2-10); Culture Indicated Urine Specimen Cultured; Mucus Urine 1+ (Negative); RBC Urine 0-1/HPF (0-5/HPF); Squamous Epithelial Cell Urine 0-1 /HPF (0-5/HPF); WBC Urine 30-100/HPF (0-5/HPF)
== END ==
PROVIDERS: PCP Family Medicine; Visit Provider Family Medicine
DX: N39.0 Urinary tract infection, site not specified (principal)
CPT/HCPCS: 81001; 87077; 87086; 87186

== ENCOUNTER → 2021-12-29 10:52 | Outpatient (CLI) | payer MEDICARE, OTHER, SELFPAY ==
[2021-12-29 19:25] LABS: HEMOLYSIS < 15 (0-50); Iron 81 ug/dL (49-181)
[2021-12-29 19:28] LABS: Erythrocyte Sedimentation Rate 22 MM/HR (0-15); Hemoglobin A1C% w Est Avg Glu 4.9 % (4.0-6.0)
[2021-12-29 19:29] LABS: Alanine Aminotransferase 25 IU/L (<50); Albumin 3.7 g/dL (3.5-5.0); Albumin Globulin Ratio 1.4 (1.0-2.8); Alkaline Phosphatase 52 U/L (38-126); Aspartate Aminotransferase 31 IU/L (17-59); BUN Creatinine Ratio 18.2 (6-22); Bilirubin Total 0.4 mg/dL (0.2-1.3); Blood Urea Nitrogen 36 mg/dL (9-20); Calcium 8.6 mg/dL (8.4-10.2); Carbon Dioxide 18 mmol/L (22-32); Chloride 115 mmol/L (98-107); Estimated Glomerular Filt Rate 32 mL/min (>60); Globulin 2.6 g/dL (1.7-4.1); Glucose 95 mg/dL (80-110); HEMOLYSIS < 15 (0-50); Potassium 4.3 mmol/L (3.4-5.1); Sodium 140 mmol/L (137-145); Total Protein 6.3 g/dL (6.3-8.2)
[2021-12-29 19:38] LABS: Hematocrit 37.5 % (41-53); Hemoglobin 12.3 g/dL (13.5-17.5); Mean Corpuscular HGB Conc 32.8 % (30-36); Mean Corpuscular Hemoglobin 31.7 PG (26-34); Mean Corpuscular Volume 96.7 fL (80-100); Platelet Count 193 X10^3/uL (150-400); Red Blood Cell Count 3.87 X10^6/uL (4.5-5.9); Red Cell Distribution Width 15.5 % (11.6-14.8); White Blood Cell Count 9.9 X10^3/uL (4.5-11.0)
[2021-12-29 19:40] LABS: Add Manual Diff / Slide Review YES
[2021-12-29 19:41] LABS: Percent Iron Saturation 25 % (20-50); Total Iron Binding Capacity 326 ug/dL (261-462); Transferrin 234 mg/dL (206-381)
[2021-12-29 19:43] LABS: Neutrophils Absolute Manual 7623 /uL (3000-5900); Total Cells Counted 100
[2021-12-29 19:44] LABS: Anisocytosis 1+
[2021-12-29 20:01] LABS: TSH w/ Reflex to FT4 2.21 uIU/mL (0.47-4.68)
[2021-12-29 20:07] LABS: Appearance Urine UA SL CLOUDY; Bilirubin Urine UA NEGATIVE (NEGATIVE); Color Urine UA YELLOW; Glucose Urine UA TRACE g/dL (Negative); Ketones Urine UA NEGATIVE (NEGATIVE); Leukocyte Esterase Urine UA TRACE (NEGATIVE); Nitrite Urine UA NEGATIVE (Negative); Occult Blood Urine UA TRACE-LYSED (Negative); Protein Urine UA 2+ (Negative); Specific Gravity Urine UA >=1.030 (1.000-1.035); Urobilinogen Urine UA 0.2 E.U./dL (0.2)
[2021-12-29 20:08] LABS: RBC Urine 0-1/HPF (0-5/HPF); Squamous Epithelial Cell Urine 0-1 /HPF (0-5/HPF); WBC Urine 30-100/HPF (0-5/HPF)
[2021-12-29 20:09] LABS: Bacteria Urine Moderate (10-30); Culture Indicated Urine Specimen Cultured
[2022-01-01 16:52] LABS: Albumin 3.8 g/dL (2.9-4.4); Alpha 1 Globulin 0.2 g/dL (0.0-0.4); Alpha 2 Globulin 0.8 g/dL (0.4-1.0); Beta 1 Globulin 0.8 g/dL (0.7-1.3); Gamma Globulin 0.5 g/dL (0.4-1.8); Protein, Total 6.1 g/dL (6.0-8.5)
== END ==
PROVIDERS: PCP Family Medicine; Visit Provider Family Medicine
DX: I49.9 Cardiac arrhythmia, unspecified (principal); G62.9 Polyneuropathy, unspecified; C90.00 Multiple myeloma not having achieved remission; D63.1 Anemia in chronic kidney disease; N18.31 Chronic kidney disease, stage 3a; N18.32 Chronic kidney disease, stage 3b; D64.9 Anemia, unspecified; N39.0 Urinary tract infection, site not specified; R31.9 Hematuria, unspecified
CPT/HCPCS: 80053; 81001; 83036; 83540; 83550; 84155; 84165; 84443; 85007; 85025; 85651; 87077; 87086; 87186

== ENCOUNTER → 2022-01-14 13:24 | Outpatient (CLI) | payer MEDICARE, OTHER, SELFPAY ==
[2022-01-14 20:20] LABS: Erythrocyte Sedimentation Rate 17 MM/HR (0-15)
[2022-01-14 20:25] LABS: TSH w/ Reflex to FT4 1.42 uIU/mL (0.47-4.68)
[2022-01-14 20:44] LABS: Vitamin B12 451 pg/mL (239-931)
== END ==
PROVIDERS: PCP Family Medicine; Visit Provider Family Medicine
DX: C90.00 Multiple myeloma not having achieved remission (principal); G62.9 Polyneuropathy, unspecified; R60.0 Localized edema; F11.90 Opioid use, unspecified, uncomplicated; G62.1 Alcoholic polyneuropathy; N18.30 Chronic kidney disease, stage 3 unspecified; N39.0 Urinary tract infection, site not specified
CPT/HCPCS: 82607; 83036; 84443; 85651

== ENCOUNTER → 2022-01-21 10:44 | Outpatient (CLI) | payer MEDICARE, OTHER, SELFPAY ==
[2022-01-21 11:30] LABS: COVID19 -Nasal RAPID Negative (Negative)
== END ==
PROVIDERS: PCP Family Medicine; Referring Provider Internal Medicine; Visit Provider Internal Medicine
DX: Z20.822 Contact with and (suspected) exposure to COVID-19 (principal)
CPT/HCPCS: 87635; C9803

== ENCOUNTER → 2022-01-21 10:46 | Outpatient (CLI) | payer MEDICARE, OTHER, SELFPAY ==
--- NOTE | 2022-01-23 08:11 | PM.PFT.1 ---
Pulmonary Function Test Referral & Results Date Patient Seen: 01/21/22 Requesting provider: Yeyo Munroe Indication: Shortness of breath Results: The spirometry demonstrates an FVC of 3.27 L which is 80% of predicted. The FEV1 was measured at 2.33 L which is 81% of predicted. The FEV1/FVC ratio was 71 which is 101% of predicted. Following the administration of bronchodilator there was a 31% improvement in FEF 25-75%. Lung volumes show an TGV of 3.28 L which is 79% of predicted. The diffusing capacity was measured at 19.26 which is 54% of predicted. No hemoglobin value was provided, so no correction for potential anemia could be made, if appropriate. The maximum voluntary ventilation was minimally reduced Interpretation: This study demonstrates possibly mild obstructive lung disease based on minimal reduction FEV1 although FEV1/FVC ratio is preserved there is some limited evidence of benefit in small airway flow after bronchodilator based on improvement in FEF 25-75% as above. Shape a flow volume loop also supports the presence of some degree of obstructive lung disease There is minimal restrictive lung disease present based on reduced lung volumes as above There is a moderate reduction in diffusing capacity suggesting disease at the capillary alveolar level as well Clinical correlation suggested
== END ==
PROVIDERS: PCP Family Medicine; Referring Provider Family Medicine; Visit Provider Family Medicine
DX: R06.09 Other forms of dyspnea (principal); J98.8 Other specified respiratory disorders; Z20.822 Contact with and (suspected) exposure to COVID-19
CPT/HCPCS: 87635; 94060; 94726; 94729; C9803

== ENCOUNTER → 2022-01-30 09:10 | Outpatient (CLI) | payer MEDICARE, OTHER, SELFPAY ==
[2022-01-31 02:25] LABS: NT-proBNP (BNP-Adult 18+) 264 pg/mL (<450)
[2022-01-31 14:42] LABS: D Dimer < 200 ng/mL (<230)
== END ==
PROVIDERS: PCP Family Medicine; Visit Provider Family Medicine
DX: R06.02 Shortness of breath (principal)
CPT/HCPCS: 83880; 85379

== ENCOUNTER → 2022-02-18 12:56 | Outpatient (CLI) | payer MEDICARE, OTHER, SELFPAY ==
[2022-02-19 04:38] LABS: BUN Creatinine Ratio 22.5 (6-22); Blood Urea Nitrogen 42 mg/dL (9-20); Calcium 8.6 mg/dL (8.4-10.2); Carbon Dioxide 18 mmol/L (22-32); Chloride 111 mmol/L (98-107); Estimated Glomerular Filt Rate 35 mL/min (>60); Glucose 110 mg/dL (80-110); HEMOLYSIS < 15 (0-50); Potassium 4.6 mmol/L (3.4-5.1); Sodium 137 mmol/L (137-145)
== END ==
PROVIDERS: PCP Family Medicine; Visit Provider Family Medicine
DX: Z12.5 Encounter for screening for malignant neoplasm of prostate (principal); R33.9 Retention of urine, unspecified; N18.32 Chronic kidney disease, stage 3b; I50.9 Heart failure, unspecified; J44.9 Chronic obstructive pulmonary disease, unspecified; M06.9 Rheumatoid arthritis, unspecified; R06.02 Shortness of breath; R60.0 Localized edema; N39.0 Urinary tract infection, site not specified
CPT/HCPCS: 80048; 87077; 87086; 87186; G0103

== ENCOUNTER → 2022-03-05 09:55 | Outpatient (CLI) | payer MEDICARE, OTHER, SELFPAY ==
[2022-03-05 20:10] LABS: Add Manual Diff / Slide Review NO; Basophils Absolute Auto 100 /uL (0-100); Basophils Percent Auto 0.8 % (0-2); Eosinophils Absolute Auto 200 /uL (0-450); Eosinophils Percent Auto 2.2 % (2-4); Hematocrit 36.7 % (41-53); Hemoglobin 12.1 g/dL (13.5-17.5); Lymphocytes Absolute Auto 900 /uL (1100-4500); Lymphocytes Percent Auto 10.8 % (25-40); Mean Corpuscular Hemoglobin 31.3 PG (26-34); Mean Corpuscular Volume 94.9 fL (80-100); Monocytes Absolute Auto 800 /uL (0-900); Neutrophils Absolute Auto 6300 /uL (1500-7000); Neutrophils Percent Auto 76.2 % (50-75); Platelet Count 233 X10^3/uL (150-400); Red Blood Cell Count 3.86 X10^6/uL (4.5-5.9); Red Cell Distribution Width 14.5 % (11.6-14.8); White Blood Cell Count 8.3 X10^3/uL (4.5-11.0)
[2022-03-05 21:14] LABS: BUN Creatinine Ratio 29.8 (6-22); Blood Urea Nitrogen 50 mg/dL (9-20); Calcium 8.8 mg/dL (8.4-10.2); Carbon Dioxide 21 mmol/L (22-32); Chloride 108 mmol/L (98-107); Estimated Glomerular Filt Rate 39 mL/min (>60); Glucose 93 mg/dL (80-110); Potassium 3.6 mmol/L (3.4-5.1); Sodium 140 mmol/L (137-145)
[2022-03-06 03:32] LABS: HEMOLYSIS < 15 (0-50); Vitamin B12 931 pg/mL (239-931)
== END ==
PROVIDERS: PCP Family Medicine; Visit Provider Family Medicine
DX: D64.9 Anemia, unspecified (principal); M06.9 Rheumatoid arthritis, unspecified; G89.4 Chronic pain syndrome; N18.32 Chronic kidney disease, stage 3b; S40.021A Contusion of right upper arm, initial encounter
CPT/HCPCS: 80048; 82607; 85025

== ENCOUNTER → 2022-03-19 13:24 | Outpatient (CLI) | payer MEDICARE, OTHER, SELFPAY | PROVIDERS: PCP Family Medicine; Visit Provider Specialist | DX: N40.0 Benign prostatic hyperplasia without lower urinary tract symptoms (principal); N21.0 Calculus in bladder; N39.0 Urinary tract infection, site not specified | CPT/HCPCS: 52000; 81002; 87077; 87086; 87186; 99215 ==

== ENCOUNTER → 2022-04-08 11:21 | Outpatient (CLI) | payer MEDICARE, OTHER, SELFPAY ==
[2022-04-08 19:53] LABS: Hematocrit 37.3 % (41-53); Hemoglobin 12.4 g/dL (13.5-17.5); Mean Corpuscular HGB Conc 33.2 % (30-36); Mean Corpuscular Hemoglobin 31.3 PG (26-34); Mean Corpuscular Volume 94.1 fL (80-100); Platelet Count 192 X10^3/uL (150-400); Red Blood Cell Count 3.96 X10^6/uL (4.5-5.9); Red Cell Distribution Width 15.5 % (11.6-14.8); White Blood Cell Count 9.5 X10^3/uL (4.5-11.0)
[2022-04-08 19:55] LABS: Add Manual Diff / Slide Review YES
[2022-04-08 19:58] LABS: BUN Creatinine Ratio 24.1 (6-22); Blood Urea Nitrogen 42 mg/dL (9-20); Calcium 8.7 mg/dL (8.4-10.2); Carbon Dioxide 19 mmol/L (22-32); Chloride 108 mmol/L (98-107); Estimated Glomerular Filt Rate 38 mL/min (>60); Glucose 91 mg/dL (80-110); HEMOLYSIS < 15 (0-50); Potassium 4.2 mmol/L (3.4-5.1); Sodium 137 mmol/L (137-145)
[2022-04-08 20:29] LABS: Anisocytosis 1+; Neutrophils Absolute Manual 8170 /uL (3000-5900); Total Cells Counted 100
== END ==
PROVIDERS: PCP Family Medicine; Visit Provider Family Medicine
DX: R33.9 Retention of urine, unspecified (principal); D64.9 Anemia, unspecified; N18.32 Chronic kidney disease, stage 3b
CPT/HCPCS: 80048; 85007; 85025

== ENCOUNTER → 2022-05-21 14:05 | Outpatient (CLI) | payer MEDICARE, OTHER, SELFPAY ==
[2022-05-21 19:56] LABS: Alanine Aminotransferase 32 IU/L (<50); Albumin 3.9 g/dL (3.5-5.0); Albumin Globulin Ratio 1.6 (1.0-2.8); Alkaline Phosphatase 57 U/L (38-126); Aspartate Aminotransferase 37 IU/L (17-59); Bilirubin Total 0.3 mg/dL (0.2-1.3); Bilirubin Unconjugated 0.3 mg/dL (0.0-1.1); Estimated Glomerular Filt Rate 29 mL/min (>60); Globulin 2.5 g/dL (1.7-4.1); HEMOLYSIS < 15 (0-50); Total Protein 6.4 g/dL (6.3-8.2)
[2022-05-21 19:58] LABS: Hematocrit 37.3 % (41-53); Mean Corpuscular HGB Conc 32.2 % (30-36); Mean Corpuscular Hemoglobin 30.8 PG (26-34); Mean Corpuscular Volume 95.7 fL (80-100); Platelet Count 211 X10^3/uL (150-400); Red Cell Distribution Width 15.4 % (11.6-14.8)
[2022-05-21 20:04] LABS: Add Manual Diff / Slide Review YES
[2022-05-21 20:45] LABS: Anisocytosis 1+; Neutrophils Absolute Manual 7020 /uL (3000-5900); Nucleated Red Blood Cells 1 #/Diff; Total Cells Counted 100
== END ==
PROVIDERS: Internal Medicine Rheumatology; PCP Family Medicine
DX: E53.8 Deficiency of other specified B group vitamins (principal); M06.00 Rheumatoid arthritis without rheumatoid factor, unspecified site; Z79.899 Other long term (current) drug therapy
CPT/HCPCS: 80076; 82565; 85007; 85025

== ENCOUNTER → 2022-06-23 12:48 | Outpatient (CLI) | payer MEDICARE, OTHER, SELFPAY ==
[2022-06-23 13:42] LABS: Appearance Urine UA CLEAR; Bilirubin Urine UA NEGATIVE (NEGATIVE); Color Urine UA YELLOW; Glucose Urine UA NEGATIVE (Negative); Ketones Urine UA NEGATIVE (NEGATIVE); Leukocyte Esterase Urine UA NEGATIVE (NEGATIVE); Nitrite Urine UA NEGATIVE (Negative); Occult Blood Urine UA 2+ (Negative); Protein Urine UA 1+ (Negative); Specific Gravity Urine UA 1.025 (1.000-1.035); Urobilinogen Urine UA 0.2 E.U./dL (0.2)
[2022-06-23 14:14] LABS: RBC Urine 1-5/HPF (0-5/HPF); Squamous Epithelial Cell Urine 1-5 /HPF (0-5/HPF); WBC Urine 5-10/HPF (0-5/HPF)
[2022-06-23 14:15] LABS: Bacteria Urine Moderate (10-30); Culture Indicated Urine Specimen Cultured; Granular Casts Urine 5-10/LPF; Hyaline Casts Urine 1-5/LPF
== END ==
PROVIDERS: PCP Family Medicine; Visit Provider Specialist
DX: N21.0 Calculus in bladder (principal); N39.0 Urinary tract infection, site not specified; N40.0 Benign prostatic hyperplasia without lower urinary tract symptoms
CPT/HCPCS: 81001; 87086

== ENCOUNTER → 2022-06-23 12:56 | Outpatient (CLI) | payer MEDICARE, OTHER, SELFPAY ==
--- NOTE | 2022-06-23 12:58 | DI.US.S_ITS ---
PROCEDURE: US ARTERIAL DUPLEX LE BI INDICATIONS: PAIN; POSSIBLE PAD TECHNIQUE: Color and pulse Doppler interrogation was performed of both lower extremity arterial systems, with image documentation. COMPARISON: None. FINDINGS: Right lower extremity: Common femoral artery: 71 cm/sec, with triphasic flow. Deep femoral artery: 49 cm/sec, with biphasic flow. Proximal superficial femoral artery: 87 cm/sec, with biphasic flow. Mid superficial femoral artery: 83 cm/sec, with biphasic flow. Distal superficial femoral artery: 66 cm/sec, with biphasic flow. Popliteal artery: 62 cm/sec, with biphasic flow. Posterior tibial artery: 41 cm/sec, with biphasic flow. Anterior tibial artery/dorsalis pedis: 83 cm/sec, with biphasic flow. Chi-scale imaging description: Negative Left lower extremity: Common femoral artery: 86 cm/sec, with triphasic flow. Deep femoral artery: 81 cm/sec, with triphasic flow. Proximal superficial femoral artery: 107 cm/sec, with biphasic flow. Mid superficial femoral artery: 131 cm/sec, with biphasic flow. Distal superficial femoral artery: 82 cm/sec, with biphasic flow. Popliteal artery: 73 cm/sec, with biphasic flow. Posterior tibial artery: 25 cm/sec, with biphasic flow. Anterior tibial artery/dorsalis pedis: 72 cm/sec, with biphasic flow. Chi-scale imaging description: Negative IMPRESSION: No evidence of arterial insufficiency to the bilateral lower extremities. Dictated by: Jarrod Jalloh M.D. on 06/23/2022 at 14:41 Transcribed by: SUMMER on 06/23/2022 at 14:43 Approved by: Jarrod Jalloh M.D. on 06/23/2022 at 16:40
== END ==
PROVIDERS: PCP Family Medicine; Referring Provider Family Medicine; Visit Provider Family Medicine
DX: R60.0 Localized edema (principal); N40.0 Benign prostatic hyperplasia without lower urinary tract symptoms; N21.0 Calculus in bladder; N39.0 Urinary tract infection, site not specified; N32.3 Diverticulum of bladder
CPT/HCPCS: 81001; 87086; 93925; 99215

== ENCOUNTER → 2022-06-30 11:32 | Outpatient (CLI) | payer MEDICARE, OTHER, SELFPAY ==
[2022-06-30 18:53] LABS: Add Manual Diff / Slide Review NO; Basophils Absolute Auto 100 /uL (0-100); Basophils Percent Auto 0.6 % (0-2); Eosinophils Absolute Auto 100 /uL (0-450); Eosinophils Percent Auto 0.6 % (2-4); Hematocrit 35.4 % (41-53); Hemoglobin 11.8 g/dL (13.5-17.5); Lymphocytes Absolute Auto 800 /uL (1100-4500); Lymphocytes Percent Auto 8.1 % (25-40); Mean Corpuscular HGB Conc 33.2 % (30-36); Mean Corpuscular Hemoglobin 30.9 PG (26-34); Mean Corpuscular Volume 93.2 fL (80-100); Monocytes Absolute Auto 600 /uL (0-900); Monocytes Percent Auto 6.1 % (3-14); Neutrophils Absolute Auto 8300 /uL (1500-7000); Neutrophils Percent Auto 84.6 % (50-75); Platelet Count 192 X10^3/uL (150-400); Red Cell Distribution Width 15.1 % (11.6-14.8); White Blood Cell Count 9.8 X10^3/uL (4.5-11.0)
[2022-06-30 18:59] LABS: Alanine Aminotransferase 31 IU/L (<50); Albumin 3.7 g/dL (3.5-5.0); Albumin Globulin Ratio 1.4 (1.0-2.8); Alkaline Phosphatase 58 U/L (38-126); Aspartate Aminotransferase 37 IU/L (17-59); BUN Creatinine Ratio 20.4 (6-22); Bilirubin Total 0.3 mg/dL (0.2-1.3); Blood Urea Nitrogen 37 mg/dL (9-20); C-Reactive Protein Quant < 0.5 mg/dL (<1.0); Calcium 8.4 mg/dL (8.4-10.2); Carbon Dioxide 19 mmol/L (22-32); Chloride 112 mmol/L (98-107); Estimated Glomerular Filt Rate 36 mL/min (>60); Globulin 2.6 g/dL (1.7-4.1); Glucose 89 mg/dL (80-110); HEMOLYSIS < 15 (0-50); Sodium 139 mmol/L (137-145); Total Protein 6.3 g/dL (6.3-8.2)
[2022-06-30 19:10] LABS: Appearance Urine UA CLEAR; Bilirubin Urine UA NEGATIVE (NEGATIVE); Color Urine UA YELLOW; Glucose Urine UA NEGATIVE (Negative); Ketones Urine UA NEGATIVE (NEGATIVE); Leukocyte Esterase Urine UA TRACE (NEGATIVE); Nitrite Urine UA NEGATIVE (Negative); Occult Blood Urine UA 2+ (Negative); Protein Urine UA 1+ (Negative); Specific Gravity Urine UA >=1.030 (1.000-1.035); Urobilinogen Urine UA 0.2 E.U./dL (0.2)
[2022-06-30 19:25] LABS: Amorphous Sediment Urine 1+; RBC Urine 1-5/HPF (0-5/HPF); Squamous Epithelial Cell Urine 1-5 /HPF (0-5/HPF); WBC Urine 5-10/HPF (0-5/HPF)
[2022-06-30 19:26] LABS: Bacteria Urine Few (2-10); Culture Indicated Urine Specimen Cultured; Mucus Urine 1+ (Negative)
[2022-06-30 19:31] LABS: Creatinine Urine Random 106.1 mg/dL; Protein (Total) Urine Random 74 mg/dL (0-12); Protein Creatinine Ratio Urine 0.69 GRAM/24H
[2022-06-30 19:43] LABS: Erythrocyte Sedimentation Rate 25 MM/HR (0-15)
[2022-06-30 20:02] LABS: Folate > 20.0 ng/mL (2.76-20.0)
[2022-07-03 19:45] LABS: Calcium 8.8 mg/dL (8.6-10.2); Parathyroid Hormone, Intact 60 pg/mL (15-65)
== END ==
PROVIDERS: Internal Medicine Nephrology; PCP Family Medicine; Visit Provider Internal Medicine Rheumatology
DX: Z51.81 Encounter for therapeutic drug level monitoring (principal); D64.9 Anemia, unspecified; E53.8 Deficiency of other specified B group vitamins; M06.00 Rheumatoid arthritis without rheumatoid factor, unspecified site; M19.041 Primary osteoarthritis, right hand; M19.042 Primary osteoarthritis, left hand; N18.32 Chronic kidney disease, stage 3b; R79.89 Other specified abnormal findings of blood chemistry; Z79.899 Other long term (current) drug therapy
CPT/HCPCS: 80053; 81001; 82310; 82570; 82746; 83970; 84156; 85025; 85651; 86140; 87077; 87086; 87186

== ENCOUNTER → 2022-07-03 07:34 | Outpatient (CLI) | payer MEDICARE, OTHER, SELFPAY ==
[2022-07-03 20:26] LABS: COVID19 - ORCAS (NP or Nasal) Negative (Negative)
== END ==
PROVIDERS: PCP Family Medicine; Visit Provider Family Medicine
DX: Z20.822 Contact with and (suspected) exposure to COVID-19 (principal); Z01.812 Encounter for preprocedural laboratory examination
CPT/HCPCS: C9803; U0003

== ENCOUNTER 2022-07-06 06:22 | Day surgery (SDC) | payer MEDICARE, OTHER, SELFPAY ==
[2022-07-02 13:54] VITALS: BMI 30.7
[2022-07-06] VITALS (16 sets, daily range): BP systolic 119–154; BP diastolic 62–88; PULSE 62–94; RESP 11–20; TEMP 36.1–37.1; O2SAT 95–100; BMI 30.7
--- NOTE | 2022-07-06 | PATH_ITS ---
[facility] Accession Number: [id number] . 01 Material submitted: . prostate - PROSTATE CHIPS . 01 Diagnosis: Prostate Chips, Transurethral Resection: Benign prostatic parenchyma with mild chronic inflammation and stromal/glandular hypertrophy. Benign urothelial mucosa also present. Negative for high-grade prostatic intraepithelial neoplasia and carcinoma. MRV 07/10/2022 1335 Local . 01 Electronically signed: . Antonio Tracy MD, Pathologist NPI- [id number] . 01 Gross description: . The specimen is received in formalin, labeled with the patient's name, , and prostate chips, and consists of multiple pink-melo rubbery soft tissue fragments weighing 12 g and aggregating to 6.3 x 5.7 x 0.9 cm. No lesions are identified. Also included within the container are multiple melo, hard fragments consistent with calculi measuring up to 0.2 cm in greatest dimension. All soft tissue fragments are submitted in cassettes A1-A7. ([id number]) /FRR 07/08/2022 0331 Local . 01 Pathologist provided ICD-10: N40.0 . 01 CPT . 371633 Specimen Comment: A courtesy copy of this report has been sent to [phone] Performed at: [facility] [address] [place] [address] [address] [facility], [place], [place] [id number] MD Jorge Ferreira MD Phone: [phone]
[2022-07-06] MEDS: LACTATED RINGERS 1,000 ML 21 ML IV (07:20)
--- NOTE | 2022-07-06 07:27 | PM.PREOP ---
Pre-operative Note COVID-19 Criteria for continued procedure: Expected advancement of disease process, Possibility delay results in more complex future surgery or treatment, Deterioration of the patient's condition or overall health, Delay expected to result in less-positive ultimate med/surg outcome and Non-surgical alternatives not available or appropriate per current SOC Interval Note History & Physical reviewed/Exam performed by Physician: Yes Changes to H&P: No
[2022-07-06] MEDS: AMPICILLIN/SULBACTAM 3 GM 3 GM in SODIUM CHLORIDE 0.9% 100 ML IV (08:10)
--- NOTE | 2022-07-06 08:16 | SUR.OPER ---
Lithotomy on padded OR bed, head on pillow, arms secured on padded arm boards at <90 degrees abduction. Legs secured in padded yellow fins stirrups.
--- NOTE | 2022-07-06 08:24 | SUR.OPER ---
URINALYSIS COLLECTED AND DELIVERED TO LAB AT 0824.
[2022-07-06 08:30] LABS: Appearance Urine UA CLEAR; Bilirubin Urine UA NEGATIVE (NEGATIVE); Color Urine UA YELLOW; Glucose Urine UA NEGATIVE (Negative); Ketones Urine UA NEGATIVE (NEGATIVE); Leukocyte Esterase Urine UA TRACE (NEGATIVE); Nitrite Urine UA NEGATIVE (Negative); Occult Blood Urine UA 1+ (Negative); Protein Urine UA TRACE (Negative); Specific Gravity Urine UA 1.015 (1.000-1.035); Urobilinogen Urine UA 0.2 E.U./dL (0.2); pH Urine UA 5.5 (4.5-8.0)
[2022-07-06] MEDS: GENTAMICIN 160 MG in SODIUM CHLORIDE 0.9% 100 ML 104 MG IV (08:30)
[2022-07-06 08:57] LABS: Bacteria Urine Few (2-10); Culture Indicated Urine Specimen Cultured; RBC Urine 1-5/HPF (0-5/HPF); Squamous Epithelial Cell Urine 0-1 /HPF (0-5/HPF); WBC Urine 1-5/HPF (0-5/HPF)
--- NOTE | 2022-07-06 09:35 | SUR.OPER ---
Generalized bruising and skin flaking noted pre operatively. White, yeast-like substance noted on bilateral groin pre operatively.
--- NOTE | 2022-07-06 09:41 | PM.OP.1 ---
Operative Date/Time/Diagnoses Date of procedure: 07/06/22 Time of procedure: 09:30 Pre-op diagnosis: 1. Bladder outlet obstruction. 2. Bladder calculus. 3. Bladder diverticulum. 4. Recurrent UTI. Post-op diagnosis: same Procedure & Clinicians Procedure: 1. Transurethral resection of prostate. 2. Cystolitholapaxy. Same procedure as scheduled: No (Laser not utilized.) Indications: 1. Bladder outlet obstruction. 2. Bladder calculus. 3. Bladder diverticulum. 4. Recurrent UTI. Surgeon: Prince Aguilar Click Yes if Unassisted: Yes Anesthesia Type: Spinal Operative Notes Findings: 1. 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 Otherwise normal caliber. 2. External sphincter- mildly gaping. 3. Prostate-5+ cm length with obstructing trilobar hyperplasia, very elevated median bar with intravesical protrusion of prostate. There were 3 individual false passage tracts that were healed and located just posterior to the verumontanum. 4. Bladder-2+ trabeculation with numerous cellule formation. There was a previously described diverticulum at approximately the midline floor posterior to the trigone containing the index calculus. Closure Type: not applicable Specimen(s): other (1. Prostate chips. 2. Bladder calculus fragments. ) Applied: catheter (#24 Finnish three-way hematuria catheter.) Estimated Blood Loss (mL): 5 Blood products transfused: none Procedure in detail: The patient was positioned in supine following successful placement of spinal anesthetic. He was then repositioned in semi lithotomy and the lower abdomen, genitalia, and groin were then prepped and draped in sterile fashion. The 25 Finnish panendoscope was then advanced the lower urinary tract with the 12 degree lens. The scope was then fitted with the angulated stone pretzel twister. The index calculus was identified within the above-described bladder diverticulum in was engaged and brought out from the confines of the diverticular neck and into the bladder lumen proper. The stone pretzel twister was then used to fragment the stone and remove pieces both mechanically and with hydrostatic assistance. The panendoscope was then removed and the resectoscope was advanced in the lower urinary tract under direct visualization. The working element was then inserted with a resection loop. Transurethral resection of the massive and elevated median lobe and intravesical protruding prostate was then undertaken. Resection was carried out from the bladder neck to the verumontanum. The lateral lobes were then noted to fall in immediately and these were then resected consecutively from approximately 2:00 to 6:00 o'clock and 6:00 to 10:00 o'clock from bladder neck to the verumontanum. Resection was limited to the confines of the capsule. All chips and clot were then removed from the bladder using both the Ellik evacuator and mechanically with resection loop. Hemostasis was excellent. The bladder was then left partially filled and resectoscope was removed. A 24 Finnish three-way hematuria catheter was then advanced into the bladder lumen utilizing a malleable catheter guide. The balloon was inflated to 30 cc. The catheter was then irrigated to assure patency. No clots chips or significant blood discoloration of the irrigant was noted. The inflow was then connected to normal saline inflow, and the outflow was connected gravity drainage. The patient was then repositioned in supine and a catheter StatLock was affixed to the thigh. The patient was then transferred to [facility] and transported to recovery in stable condition. Complications: none Post-operative Condition: stable Disposition: PACU Plan for aftercare: Outpatient with a bed status-acute care.
[2022-07-06] MEDS: OXYCODONE IR 5 MG TABLET PO ×3 (09:46→19:12)
[2022-07-06] MEDS: HYDROMORPHONE 2 MG INJ IV ×2 (09:48→09:55)
[2022-07-06] MEDS: ENOXAPARIN 30 MG/0.3 ML SYRINGE SUBCUT (11:35)
[2022-07-06] MEDS: LACTATED RINGERS 1,000 ML 125 ML IV ×2 (11:35→19:12)
[2022-07-06] MEDS: GABAPENTIN 300 MG CAPSULE PO ×2 (17:27→20:36)
--- NOTE | 2022-07-07 03:36 | PC.NURSE ---
Pt is AxOx4, needs 1 person assistance and cooperative. VSS, pt c/o pain on abdomen and recieved PRN Oxy 5mg x1 with good effect. CBI is running well: light pink output and pt only needed to be irrigated once. Rarely any blood clotts in the output. Ileostomy emptied with dark and green output. No other changes.
[2022-07-07 06:00] VITALS: BP 109/62; PULSE 102; RESP 20; TEMP 37.2; O2SAT 95
[2022-07-07] MEDS: OXYCODONE IR 5 MG TABLET PO ×3 (06:02→16:00)
[2022-07-07 08:00] VITALS: BP 109/64; PULSE 102; RESP 16; TEMP 36.3; O2SAT 96
[2022-07-07] MEDS: LIDOCAINE PATCH 1 EACH ADH..PATCH 4 EACH TOP (09:18)
[2022-07-07] MEDS: HYDROXYCHLOROQUINE 200 MG TABLET 500 MG PO (09:19)
[2022-07-07] MEDS: predniSONE 5 MG TABLET 10 MG PO (09:20)
[2022-07-07] MEDS: GABAPENTIN 300 MG CAPSULE PO ×2 (09:21→16:00)
[2022-07-07] MEDS: FOLIC ACID 1 MG TABLET PO (09:21)
[2022-07-07] MEDS: ENOXAPARIN 30 MG/0.3 ML SYRINGE SUBCUT (11:02)
[2022-07-07 12:00] VITALS: BP 119/64; PULSE 102; RESP 16; TEMP 37.1; O2SAT 96
--- NOTE | 2022-07-07 12:45 | P.DS_ITS ---
History of Present Illness History of Present Illness Date Patient Seen: 07/07/22 Time Patient Seen: 12:20 Chief complaint: OPB Narrative: The patient is an 87-year-old male presenting with a history of recurrent Klebsiella UTI. He had a previous history transurethral resection of the prostate remotely. Upper lower tract evaluation revealed finding of a 1 cm calculus lying within a bladder diverticulum emanating from the midline floor and markedly obstructing median bar and intravesical median prostate. There was endoscopic evidence of previous lateral lobe resection. Discharge Providers Provider Discharge Date: 07/07/22 Primary care physician: Yeyo Munroe MD Discharge provider: Prince Aguilar MD Summary Hospital Course Discharge Diagnosis: 1. Bladder outlet obstruction. 2. Recurrent UTI. 3. Bladder diverticulum. 4. Bladder calculus. Hospital Course: The patient was admitted on the morning of 07/06/2022 and underwent uncomplicated transurethral resection of the prostate and cystolitholapaxy under spinal anesthetic. The patient's postoperative course was largely unremarkable in that he tolerated a general diet, was able to ambulate with 4 point wheeled walker as he does in outpatient setting, and denies significant postoperative discomfort. On 07/07/2022 he was stable for discharge. Pathology was pending at discharge. Prescriptions for cephalexin as provided. Preoperatively he had been previously prescribed prescription and detailed instructions for resumption of warfarin and bridging therapy with enoxaparin. Exam Vital Signs (past 8 hours): - 07/07/22 06:00 07/07/22 08:00 07/07/22 12:00 Temperature 99.0 F 97.4 F L 98.7 F Pulse Rate 102 H 102 H 102 H Respiratory Rate 20 16 16 Blood Pressure 109/62 109/64 119/64 Pulse Oximetry 95 96 96 Oxygen Flow Rate 0 0 0 Oxygen Delivery Method Room Air Oxygen Flow Rate 0 Narrative Exam Narrative: He is sitting upright in the bedside chair and in no distress. He is eating lunch without difficulty. He denies pain. Chest-equal and unlabored expansion bilaterally. Heart-normal sinus rhythm. Abdomen-round and protuberant. Intact right lower extremity ostomy plate and bag. 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, unspecified Multiple fractures of ribs, left side, initial encounter for closed fracture Other specified diseases of blood and blood-forming organs Personal history of other malignant neoplasm of skin Phlebitis and thrombophlebitis of left femoral vein Polyneuropathy, unspecified Presence of ileostomy Repeated falls Rheumatoid arthritis Sedative, hypnotic or anxiolytic dependence, 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, 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 Stable postoperative day 1 status post Transurethral resection of the prostate and cystolitholapaxy. 2. Pathology pending. 3. Stone analysis and culture pending. 4. Chronic warfarin anticoagulant therapy. Plan of Treatment: 1. Discharge home today with indwelling Cuello catheter. 2. Continue enoxaparin as prescribed preoperatively. 3. Begin warfarin 4 mg p.o. q.day and discontinue enoxaparin 1 day prior to scheduled Cuello catheter removal. 4. Tissue pathology will be discussed in outpatient setting when final. 5. Stone analysis will be discussed in outpatient setting when final. Discharge Plan Discharge orders & Medications Prescriptions: No Action duloxetine 30 mg capsule,delayed release(DR/EC) 30 mg PO DAILY Qty: 90 3RF prednisone 5 mg tablet 10 mg PO DAILY Qty: 60 1RF betamethasone valerate 0.1 % ointment See Rx Instructions topical DAILY Qty: 45 1RF Rx Instructions: Apply to lower legs topically for inflammation daily warfarin 4 mg tablet 4 mg PO DAILY Qty: 90 3RF gabapentin 300 mg capsule 300 mg PO TID Qty: 90 3RF hydrocodone-acetaminophen 5-300 mg tablet See Rx Instructions PO Q4-6H PRN (Reason: pain) Qty: 112 0RF Rx Instructions: Take 1 tablet every 6 hours as needed for pain. Must last 28 days. Release date 06/23/22 albuterol sulfate [Ventolin HFA] 90 mcg/actuation HFA aerosol inhaler 2 inh inhalation ONCE PRN (Reason: shortness of breath or wheezing) Qty: 8.5 0RF enoxaparin 40 mg/0.4 mL syringe 40 mg SUBCUT Q24H 20 Days Qty: 8 0RF Rx Instructions: Inject 40 mg (0.4 mL) syringe subcutaneously daily as directed. lidocaine 5 % adhesive patch,medicated 4 patch topical DAILY Qty: 30 8RF Rx Instructions: leave on most painful area for up to 12 hrs triamcinolone acetonide [Kenalog] 40 mg/mL suspension 80 mg intra-articular ONCE Qty: 2 0RF hydroxychloroquine 100 mg tablet 400 mg PO DAILY folic acid 1 mg tablet 1 mg PO DAILY Follow up/Referrals: Yeyo Munroe MD [Primary Care Provider] - Discharge Data Primary Care Provider: Yeyo Munroe Attending Provider: Prince Aguilar VTE Deep Vein Thrombosis/Pulmonary Embolism Present on Admission: No
--- NOTE | 2022-07-07 13:56 | CM.IDA ---
Initial DCP Assessment Patient is 87 y/o male who presents to after TURP surgery performed by Dr. Aguilar. Patient's PCP Is Dr. Yeyo Munroe, Patient has Medicare and for Life insurance. Patient has hx of recurrent UTI, Bladder DVT, and COPD. 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 Patient presents as A/Ox3, patient endorses independence with most ADLs. Patient endorses that supports patient as needed with shower. Patient uses [facility] at baseline and has a shower bench. Patient's drives patient. Patient resides at home with spouse on [facility]. Per recommendation from Dr. Aguilar, patient and plan to stay at [facility] [place] this evening in the case that patient needs medical attention. Patient denies DCP needs and states his plan to f/u with PCP and Urology. Plan: Patient to d/c to home with upon medical clearance today. RADHA Loredo Discharge Planning/Care Management CM Discharge Assessment Start: 07/07/22 13:51 Freq: Status: Active Protocol: Document 07/07/22 13:51 LN (Rec: 07/07/22 13:56 LN [id number]) Discharge Planning Assessment Assigned Early Childhood Education Coordinator RADHA Massey Advance Directives? Yes Advance Directives on File Yes History Provided By Patient,Significant Other, Medical Record Has Patient been admitted in last 30 No days? Prior Living Arrangements House Household Members spouse Type of transporation used prior to Relies on Others admit Independent with ADL's Yes Is patient alert and oriented? Yes Needs Assistance With Grooming DME Already Rented / Owned Bath Bench,FWW / Walker Discharge Plan Home Referrals Initiated None needed Please Provide Date Initial DC 07/07/22 Assessment Was Performed
[2022-07-07 16:09] VITALS: TEMP 37.6
--- NOTE | 2022-07-07 17:03 | PC.NURSE ---
16:40 Pt dressed and ready for d/c home to be transported via pov by . IV removed and no tele. Discussed d/c instructions with pt and and answered questions. Provided pt and education about herring catheter care, infection s/s to report to healthcare provider, stroke s/s, and medications. Pt denies having prescriptions held at the pharmacy and denies having items being held in the safe. Per Dr. Aguilar, it is important that the pt wait to take the cephalexin until 07/12/2022. Pt taken out via wheelchair by CHORAL DIRECTOR with all belongings.
[2022-07-13 09:14] LABS: Ca oxalate dihydrate 20 % (.); Ca oxalate monohydr 70 % (.); Hydroxyapatite 10 % (.); Size 6x6 mm (.)
== END 2022-07-07 16:40 | disposition home or self-care (01) ==
LOC: OR 06:30 → AC 06:30
PROVIDERS: PCP Family Medicine; Referring Provider Specialist; Visit Provider Specialist
PROC: 0VT08ZZ Resection of Prostate, Via Natural or Artificial Opening Endoscopic (ICD-10-PCS; CPT 52601; principal; 2022-07-06 07:45)
PROC: 0TCB8ZZ Extirpation of Matter from Bladder, Via Natural or Artificial Opening Endoscopic (ICD-10-PCS; CPT 52601; 2022-07-06 07:45)
DX: N21.0 Calculus in bladder (principal); N32.3 Diverticulum of bladder; N40.0 Benign prostatic hyperplasia without lower urinary tract symptoms; N39.0 Urinary tract infection, site not specified; R82.71 Bacteriuria
CPT/HCPCS: 52601; 52317; 36415; 81001; 82365; 87070; 87075; 87077; 87086; 87186; 87205; J0295; J1170; J1650; J2704; J3010

== ENCOUNTER → 2022-09-04 10:59 | Outpatient (CLI) | payer MEDICARE, OTHER, SELFPAY ==
[2022-09-01 15:03] VITALS: BMI 30.7
== END ==
PROVIDERS: PCP Family Medicine; Visit Provider Family Medicine
DX: L03.113 Cellulitis of right upper limb (principal); M70.20 Olecranon bursitis, unspecified elbow
CPT/HCPCS: 87070; 87075; 87077; 87147; 87186; 87205

== ENCOUNTER → 2022-09-09 14:01 | Outpatient (CLI) | payer MEDICARE, OTHER, SELFPAY ==
[2022-09-01 15:03] VITALS: BMI 30.7
[2022-09-09 19:14] LABS: Add Manual Diff / Slide Review NO; Basophils Absolute Auto 0 /uL (0-100); Basophils Percent Auto 0.3 % (0-2); Eosinophils Absolute Auto 0 /uL (0-450); Eosinophils Percent Auto 0.3 % (2-4); Hematocrit 28.1 % (41-53); Hemoglobin 8.9 g/dL (13.5-17.5); Lymphocytes Absolute Auto 500 /uL (1100-4500); Lymphocytes Percent Auto 5.6 % (25-40); Mean Corpuscular HGB Conc 31.6 % (30-36); Mean Corpuscular Hemoglobin 29.4 PG (26-34); Mean Corpuscular Volume 93.2 fL (80-100); Monocytes Absolute Auto 500 /uL (0-900); Monocytes Percent Auto 5.6 % (3-14); Neutrophils Absolute Auto 7600 /uL (1500-7000); Neutrophils Percent Auto 88.2 % (50-75); Platelet Count 224 X10^3/uL (150-400); Red Blood Cell Count 3.02 X10^6/uL (4.5-5.9); Red Cell Distribution Width 16.3 % (11.6-14.8); White Blood Cell Count 8.6 X10^3/uL (4.5-11.0)
[2022-09-09 19:23] LABS: Alanine Aminotransferase 26 IU/L (<50); Albumin 3.4 g/dL (3.5-5.0); Albumin Globulin Ratio 1.3 (1.0-2.8); Alkaline Phosphatase 67 U/L (38-126); Aspartate Aminotransferase 25 IU/L (17-59); BUN Creatinine Ratio 15.2 (6-22); Bilirubin Total 0.2 mg/dL (0.2-1.3); Blood Urea Nitrogen 34 mg/dL (9-20); C-Reactive Protein Quant < 0.5 mg/dL (<1.0); Calcium 8.5 mg/dL (8.4-10.2); Carbon Dioxide 17 mmol/L (22-32); Chloride 112 mmol/L (98-107); Estimated Glomerular Filt Rate 28 mL/min (>60); Globulin 2.6 g/dL (1.7-4.1); Glucose 118 mg/dL (80-110); HEMOLYSIS < 15 (0-50); Potassium 4.8 mmol/L (3.4-5.1); Sodium 140 mmol/L (137-145)
[2022-09-09 19:34] LABS: Erythrocyte Sedimentation Rate 51 MM/HR (0-15)
[2022-09-09 19:43] LABS: TSH w/ Reflex to FT4 2.11 uIU/mL (0.47-4.68)
[2022-09-09 20:10] LABS: Vitamin B12 964 pg/mL (239-931)
== END ==
PROVIDERS: PCP Family Medicine; Visit Provider Family Medicine
DX: M06.9 Rheumatoid arthritis, unspecified (principal); R53.82 Chronic fatigue, unspecified; C90.01 Multiple myeloma in remission; D64.9 Anemia, unspecified; R06.02 Shortness of breath; Z86.19 Personal history of other infectious and parasitic diseases
CPT/HCPCS: 80053; 82607; 84443; 85025; 85651; 86140

== ENCOUNTER → 2022-09-24 14:22 | Outpatient (CLI) | payer MEDICARE, OTHER, SELFPAY ==
[2022-09-01 15:03] VITALS: BMI 30.7
[2022-09-24 19:27] LABS: Add Manual Diff / Slide Review NO; Basophils Absolute Auto 0 /uL (0-100); Basophils Percent Auto 0.3 % (0-2); Eosinophils Absolute Auto 0 /uL (0-450); Eosinophils Percent Auto 0.3 % (2-4); Hematocrit 32.8 % (41-53); Hemoglobin 10.4 g/dL (13.5-17.5); Lymphocytes Absolute Auto 800 /uL (1100-4500); Lymphocytes Percent Auto 8.3 % (25-40); Mean Corpuscular HGB Conc 31.5 % (30-36); Mean Corpuscular Volume 95.1 fL (80-100); Monocytes Absolute Auto 500 /uL (0-900); Monocytes Percent Auto 5.2 % (3-14); Neutrophils Absolute Auto 8800 /uL (1500-7000); Neutrophils Percent Auto 85.9 % (50-75); Platelet Count 194 X10^3/uL (150-400); Red Blood Cell Count 3.45 X10^6/uL (4.5-5.9); Red Cell Distribution Width 17.9 % (11.6-14.8); White Blood Cell Count 10.2 X10^3/uL (4.5-11.0)
[2022-09-24 19:30] LABS: Blood Urea Nitrogen 38 mg/dL (9-20); Calcium 8.9 mg/dL (8.4-10.2); Carbon Dioxide 18 mmol/L (22-32); Chloride 107 mmol/L (98-107); Estimated Glomerular Filt Rate 30 mL/min (>60); Glucose 100 mg/dL (80-110); HEMOLYSIS < 15 (0-50); Potassium 4.5 mmol/L (3.4-5.1); Sodium 140 mmol/L (137-145)
[2022-09-24 20:01] LABS: Erythrocyte Sedimentation Rate 20 MM/HR (0-15)
== END ==
PROVIDERS: PCP Family Medicine; Visit Provider Family Medicine
DX: Z51.81 Encounter for therapeutic drug level monitoring (principal); N18.32 Chronic kidney disease, stage 3b; R06.02 Shortness of breath; R53.82 Chronic fatigue, unspecified; Z22.322 Carrier or suspected carrier of Methicillin resistant Staphylococcus aureus; Z79.01 Long term (current) use of anticoagulants
CPT/HCPCS: 80048; 85025; 85651

== ENCOUNTER → 2022-09-30 11:28 | Outpatient (CLI) | payer MEDICARE, OTHER, SELFPAY ==
[2022-09-01 15:03] VITALS: BMI 30.7
== END ==
PROVIDERS: PCP Family Medicine; Visit Provider Specialist
DX: R31.9 Hematuria, unspecified (principal); N40.0 Benign prostatic hyperplasia without lower urinary tract symptoms; Z87.440 Personal history of urinary (tract) infections
CPT/HCPCS: 51798; 81002; 87077; 87086; 87186; 99215

== ENCOUNTER → 2022-10-27 11:29 | Outpatient (CLI) | payer MEDICARE, OTHER, SELFPAY ==
[2022-10-14 15:56] VITALS: BMI 30.7
[2022-10-27 19:37] LABS: Cholesterol 181 mg/dL (140-199); HDL Cholesterol 104 mg/dL (40-60); LDL Cholesterol Calculated 64 mg/dL (<100); Triglycerides 63 mg/dL (35-150)
[2022-10-27 19:52] LABS: Add Manual Diff / Slide Review NO; Basophils Absolute Auto 0 /uL (0-100); Basophils Percent Auto 0.3 % (0-2); Eosinophils Absolute Auto 0 /uL (0-450); Eosinophils Percent Auto 0.5 % (2-4); Hematocrit 33.6 % (41-53); Hemoglobin 10.6 g/dL (13.5-17.5); Lymphocytes Absolute Auto 600 /uL (1100-4500); Lymphocytes Percent Auto 7.1 % (25-40); Mean Corpuscular HGB Conc 31.7 % (30-36); Mean Corpuscular Hemoglobin 30.5 PG (26-34); Mean Corpuscular Volume 96.3 fL (80-100); Monocytes Absolute Auto 500 /uL (0-900); Monocytes Percent Auto 5.8 % (3-14); Neutrophils Absolute Auto 7900 /uL (1500-7000); Neutrophils Percent Auto 86.3 % (50-75); Platelet Count 186 X10^3/uL (150-400); Red Blood Cell Count 3.48 X10^6/uL (4.5-5.9); Red Cell Distribution Width 17.6 % (11.6-14.8); White Blood Cell Count 9.1 X10^3/uL (4.5-11.0)
== END ==
PROVIDERS: PCP Family Medicine; Visit Provider Family Medicine
DX: D64.9 Anemia, unspecified (principal); E78.5 Hyperlipidemia, unspecified; Z13.220 Encounter for screening for lipoid disorders
CPT/HCPCS: 80061; 85025

== ENCOUNTER → 2022-11-04 13:45 | Outpatient (CLI) | payer MEDICARE, OTHER, SELFPAY ==
[2022-10-14 15:56] VITALS: BMI 30.7
== END ==
PROVIDERS: PCP Family Medicine; Referring Provider Family Medicine; Visit Provider Family Medicine
DX: R00.0 Tachycardia, unspecified (principal); R53.1 Weakness; R42 Dizziness and giddiness
CPT/HCPCS: 93246

== ENCOUNTER → 2022-12-14 10:55 | Outpatient (CLI) | payer MEDICARE, OTHER, SELFPAY ==
[2022-10-14 15:56] VITALS: BMI 30.7
[2022-12-14 19:38] LABS: HEMOLYSIS 36 (0-50)
[2022-12-14 19:43] LABS: Hemoglobin 11.7 g/dL (13.5-17.5); Mean Corpuscular HGB Conc 32.6 % (30-36); Mean Corpuscular Hemoglobin 31.7 PG (26-34); Mean Corpuscular Volume 97.1 fL (80-100); Platelet Count 196 X10^3/uL (150-400); White Blood Cell Count 11.1 X10^3/uL (4.5-11.0)
[2022-12-14 19:45] LABS: Add Manual Diff / Slide Review YES
[2022-12-14 19:49] LABS: Alanine Aminotransferase 28 IU/L (<50); Albumin 3.5 g/dL (3.5-5.0); Albumin Globulin Ratio 1.5 (1.0-2.8); Alkaline Phosphatase 69 U/L (38-126); Aspartate Aminotransferase 27 IU/L (17-59); Bilirubin Total 0.4 mg/dL (0.2-1.3); Blood Urea Nitrogen 32 mg/dL (9-20); C-Reactive Protein Quant 0.9 mg/dL (<1.0); Calcium 8.6 mg/dL (8.4-10.2); Carbon Dioxide 17 mmol/L (22-32); Chloride 110 mmol/L (98-107); Estimated Glomerular Filt Rate 32 mL/min (>60); Globulin 2.4 g/dL (1.7-4.1); Glucose 84 mg/dL (80-110); Sodium 139 mmol/L (137-145); Total Protein 5.9 g/dL (6.3-8.2)
[2022-12-14 19:56] LABS: Erythrocyte Sedimentation Rate 29 MM/HR (0-15)
[2022-12-14 20:23] LABS: Neutrophils Absolute Manual 8769 /uL (3000-5900); RBC Morphology Normal Morphology; Total Cells Counted 100
[2022-12-14 20:24] LABS: Toxic Vacuolation Present
[2022-12-15 16:27] LABS: Folate > 20.0 ng/mL (2.76-20.0)
== END ==
PROVIDERS: Internal Medicine Rheumatology; PCP Family Medicine
DX: M06.00 Rheumatoid arthritis without rheumatoid factor, unspecified site (principal); Z51.81 Encounter for therapeutic drug level monitoring; Z79.899 Other long term (current) drug therapy; M19.041 Primary osteoarthritis, right hand; M19.042 Primary osteoarthritis, left hand; N18.32 Chronic kidney disease, stage 3b; D64.9 Anemia, unspecified; E53.8 Deficiency of other specified B group vitamins
CPT/HCPCS: 80053; 82746; 85007; 85025; 85651; 86140

== ENCOUNTER → 2022-12-28 13:59 | Outpatient (CLI) | payer MEDICARE, OTHER, SELFPAY ==
[2022-10-14 15:56] VITALS: BMI 30.7
[2022-12-28 20:40] LABS: Appearance Urine UA CLEAR; Bilirubin Urine UA NEGATIVE (NEGATIVE); Color Urine UA YELLOW; Glucose Urine UA NEGATIVE (Negative); Ketones Urine UA NEGATIVE (NEGATIVE); Leukocyte Esterase Urine UA 1+ (NEGATIVE); Nitrite Urine UA NEGATIVE (Negative); Occult Blood Urine UA 1+ (Negative); Protein Urine UA 2+ (Negative); Specific Gravity Urine UA 1.025 (1.000-1.035); Urobilinogen Urine UA 0.2 E.U./dL (0.2)
[2022-12-28 20:48] LABS: Amorphous Sediment Urine 1+; Bacteria Urine Occasional (0-1); Culture Indicated Urine Specimen Cultured; Hyaline Casts Urine 1-5/LPF; RBC Urine 1-5/HPF (0-5/HPF); WBC Urine 5-10/HPF (0-5/HPF)
[2022-12-28 22:47] LABS: Creatinine Urine Random 118.5 mg/dL; Protein (Total) Urine Random 54 mg/dL (0-12); Protein Creatinine Ratio Urine 0.45 GRAM/24H
== END ==
PROVIDERS: PCP Family Medicine; Visit Provider Internal Medicine Nephrology
DX: N18.30 Chronic kidney disease, stage 3 unspecified (principal)
CPT/HCPCS: 81001; 82570; 84156; 87086

== ENCOUNTER → 2023-02-04 11:52 | Outpatient (CLI) | payer MEDICARE, OTHER, SELFPAY ==
[2022-10-14 15:56] VITALS: BMI 30.7
--- NOTE | 2023-02-04 | DI.CT.S_ITS ---
PROCEDURE: CT CHEST HIGH RESOLUTION INDICATIONS: dyspnea TECHNIQUE: Noncontrast 1.0 and 5.0 mm thick contiguous axial sections from the pulmonary apex to the posterior costophrenic angles, with 7 mm thick coronal and sagittal MIP reformats. 1 mm thick dynamic expiratory images acquired through the upper, mid, and lower lungs. 1.0 mm thick axial sections acquired from the gus to the posterior costophrenic angles in the prone end-inspiration position. For radiation dose reduction, the following was used: automated exposure control, adjustment of mA and/or kV according to patient size. COMPARISON: None. FINDINGS: Image quality: Excellent. Lungs: Mild air trapping. Dependent atelectasis. Mild subpleural fat hypertrophy, nonspecific but usually indicating prior inflammation or infection. No suspicious pulmonary nodules. Pleura: No pleural effusions or pneumothorax. Mediastinum: Heart size is normal. No pericardial effusion. Thoracic aorta and central pulmonary arteries are normal in size. Esophagus is normal in caliber. Bones and chest wall: No suspicious bony lesions. No vertebral body compression fractures. 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 Cholelithiasis without wall thickening or adjacent fat stranding to suggest acute cholecystitis. 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 Recommend abdominal CTA for confirmation. No evidence of interstitial lung disease. Diffuse air trapping, usually indicating chronic small airways disease. Subpleural fat hypertrophy, commonly caused by prior infection or inflammatory process. Cholelithiasis without acute cholecystitis. Dictated by: Chandler Ovalle M.D. on 02/04/2023 at 14:05 Approved by: Chandler Ovalle M.D. on 02/04/2023 at 14:10
== END ==
PROVIDERS: PCP Family Medicine; Referring Provider Internal Medicine Pulmonary Disease; Visit Provider Internal Medicine Pulmonary Disease
DX: I72.8 Aneurysm of other specified arteries (principal); R06.09 Other forms of dyspnea; J98.4 Other disorders of lung; K80.20 Calculus of gallbladder without cholecystitis without obstruction; J98.8 Other specified respiratory disorders; J96.01 Acute respiratory failure with hypoxia
CPT/HCPCS: 71250; 94060

== ENCOUNTER → 2023-02-04 11:57 | Outpatient (CLI) | payer MEDICARE, OTHER, SELFPAY ==
[2022-10-14 15:56] VITALS: BMI 30.7
--- NOTE | 2023-02-11 09:47 | PM.PFT.1 ---
Pulmonary Function Test Referral & Results Date Patient Seen: 02/04/23 Results: The spirometry demonstrates an FVC of 2.57 L which is 63% of predicted. The FEV1 was measured at 1.82 L which is 64% of predicted. The FEV1/FVC ratio was 71 which is 101% of predicted. Following the administration of bronchodilator there was no appreciable change. Interpretation: This study demonstrates moderate obstructive lung disease based on reduction FEV1 although FEV1/FVC ratio is preserved. Compared to PFTs performed in January 2022, current study demonstrates reduction in FEV1 which was previously at 2.33 L currently at 1.82 L. No diffusing capacity or lung volumes were performed with most recent study for comparison Clinical correlation suggested
== END ==
PROVIDERS: PCP Family Medicine; Referring Provider Internal Medicine Pulmonary Disease; Visit Provider Internal Medicine Pulmonary Disease
DX: R06.09 Other forms of dyspnea (principal); J98.4 Other disorders of lung; J98.8 Other specified respiratory disorders; J96.01 Acute respiratory failure with hypoxia
CPT/HCPCS: 94060

== ENCOUNTER → 2023-05-11 14:51 | Outpatient (CLI) | payer MEDICARE, OTHER, SELFPAY ==
[2022-10-14 15:56] VITALS: BMI 30.7
--- NOTE | 2023-05-11 14:54 | DI.US.S_ITS ---
PROCEDURE: US RENAL COMPLETE INDICATIONS: CKD 3 / EDEMA / RENAL CYST TECHNIQUE: Real-time scanning was performed of the kidneys and bladder, with image documentation. COMPARISON: [facility], RG, CT THORAX/ABD/PELVIS W/O CONTRAST, 01/13/2020, 13:47. [facility], CT, CT CHEST HIGH RESOLUTION, 02/04/2023, 12:29. FINDINGS: Kidneys: Kidneys are normal in size. Right kidney measures 15.8 cm long; left kidney measures 12.3 cm long. Right renal cortical thickness is 1.6 cm; left renal cortical thickness is 1.5 cm. Renal cortical echotexture is normal. There is a 8.0 mm echogenic focus in the left kidney which may represent a nonobstructing stone. No right-sided hydronephrosis or nephrolithiasis. No suspicious solid mass lesions. Multiple bilateral renal cysts as noted on comparison CT. Largest on the right measures 2.9 x 3.0 x 3.3 cm. Largest on the left measures approximately 2.8 x 2.8 x 3.5 cm. Bladder: Pre-void bladder volume is not measured secondary to decompressed urinary bladder. No gross abnormality seen. Miscellaneous: No free pelvic fluid. IMPRESSION: Bilateral kidneys without acute sonographic abnormalities. Possible 8 mm nonobstructing left renal stone. Redemonstration of bilateral renal cysts. No evidence for obstructive uropathy. Dictated by: Amaury Radford M.D. on 05/11/2023 at 16:26 Approved by: Amaury Radford M.D. on 05/11/2023 at 16:30
== END ==
PROVIDERS: PCP Family Medicine; Referring Provider Internal Medicine Nephrology; Visit Provider Internal Medicine Nephrology
DX: N18.32 Chronic kidney disease, stage 3b (principal); N28.1 Cyst of kidney, acquired; R60.9 Edema, unspecified
CPT/HCPCS: 76770

== ENCOUNTER → 2023-08-02 14:00 | Outpatient (CLI) | payer MEDICARE, OTHER, SELFPAY ==
[2022-10-14 15:56] VITALS: BMI 30.7
[2023-08-02 19:53] LABS: Hematocrit 37.8 % (41-53); Hemoglobin 12.4 g/dL (13.5-17.5); Mean Corpuscular HGB Conc 32.8 % (30-36); Mean Corpuscular Hemoglobin 32.1 PG (26-34); Mean Corpuscular Volume 97.8 fL (80-100); Platelet Count 179 X10^3/uL (150-400); Red Blood Cell Count 3.87 X10^6/uL (4.5-5.9); Red Cell Distribution Width 15.2 % (11.6-14.8); White Blood Cell Count 8.9 X10^3/uL (4.5-11.0)
[2023-08-02 19:54] LABS: Add Manual Diff / Slide Review YES
[2023-08-02 20:07] LABS: Erythrocyte Sedimentation Rate 22 MM/HR (0-15)
[2023-08-02 20:28] LABS: Neutrophils Absolute Manual 7298 /uL (3000-5900); Total Cells Counted 100
[2023-08-02 20:29] LABS: RBC Morphology Normal Morphology
[2023-08-02 20:36] LABS: Alanine Aminotransferase 29 IU/L (<50); Albumin 3.5 g/dL (3.5-5.0); Albumin Globulin Ratio 1.4 (1.0-2.8); Alkaline Phosphatase 69 U/L (38-126); Aspartate Aminotransferase 19 IU/L (17-59); Bilirubin Total 0.4 mg/dL (0.2-1.3); Blood Urea Nitrogen 41 mg/dL (9-20); C-Reactive Protein Quant 0.7 mg/dL (<1.0); Calcium 9.2 mg/dL (8.4-10.2); Carbon Dioxide 19 mmol/L (22-32); Chloride 111 mmol/L (98-107); Estimated Glomerular Filt Rate 32 mL/min (>60); Globulin 2.5 g/dL (1.7-4.1); Glucose 110 mg/dL (80-110); HEMOLYSIS < 15 (0-50); Potassium 4.5 mmol/L (3.4-5.1); Sodium 135 mmol/L (137-145)
== END ==
PROVIDERS: PCP Family Medicine; Visit Provider Internal Medicine Rheumatology
DX: M06.09 Rheumatoid arthritis without rheumatoid factor, multiple sites (principal); Z79.899 Other long term (current) drug therapy
CPT/HCPCS: 80053; 85007; 85025; 85651; 86140

== ENCOUNTER → 2023-12-08 14:06 | Outpatient (CLI) | payer MEDICARE, OTHER, SELFPAY ==
[2022-10-14 15:56] VITALS: BMI 30.7
[2023-12-08 21:12] LABS: Alanine Aminotransferase 27 IU/L (<50); Albumin 4.2 g/dL (3.5-5.0); Alkaline Phosphatase 60 U/L (38-126); Aspartate Aminotransferase 19 IU/L (17-59); BUN Creatinine Ratio 20.3 (6-22); Bilirubin Total 0.4 mg/dL (0.2-1.3); Blood Urea Nitrogen 47 mg/dL (9-20); Calcium 8.9 mg/dL (8.4-10.2); Carbon Dioxide 17 mmol/L (22-32); Chloride 114 mmol/L (98-107); Estimated Glomerular Filt Rate 26 mL/min (>60); Globulin 2.1 g/dL (1.7-4.1); Glucose 133 mg/dL (80-110); HEMOLYSIS < 15 (0-50); Phosphorous 3.7 mg/dL (2.3-3.7); Sodium 139 mmol/L (137-145); Total Protein 6.3 g/dL (6.3-8.2)
[2023-12-08 21:20] LABS: Hematocrit 40.9 % (41-53); Mean Corpuscular HGB Conc 31.9 % (30-36); Mean Corpuscular Hemoglobin 32.2 PG (26-34); Mean Corpuscular Volume 101.1 fL (80-100); Platelet Count 177 X10^3/uL (150-400); Red Blood Cell Count 4.04 X10^6/uL (4.5-5.9); Red Cell Distribution Width 15.6 % (11.6-14.8); White Blood Cell Count 9.2 X10^3/uL (4.5-11.0)
[2023-12-08 21:21] LABS: Add Manual Diff / Slide Review YES
[2023-12-08 21:37] LABS: Neutrophils Absolute Manual 8188 /uL (3000-5900); RBC Morphology Normal Morphology; Total Cells Counted 100
[2023-12-08 21:46] LABS: Ferritin 34 ng/mL (18-464)
[2023-12-08 22:34] LABS: Bilirubin Conjugated 0.1 md/dL (0.0-0.3)
[2023-12-10 17:11] LABS: Free Kappa Lt Chains, Serum 23.4 mg/L (3.3-19.4); Free Lambda Lt Chains,Serum 16.5 mg/L (5.7-26.3)
[2023-12-12 00:12] LABS: Calcium 8.7 mg/dL (8.6-10.2); Parathyroid Hormone, Intact 64 pg/mL (15-65)
== END ==
PROVIDERS: Internal Medicine Nephrology; PCP Family Medicine
DX: N18.32 Chronic kidney disease, stage 3b (principal)
CPT/HCPCS: 80069; 80076; 82306; 82310; 82728; 83735; 83883; 83970; 84155; 84165; 85007; 85025

== ENCOUNTER → 2023-12-13 11:04 | Outpatient (CLI) | payer MEDICARE, OTHER, SELFPAY ==
[2022-10-14 15:56] VITALS: BMI 30.7
[2023-12-13 20:15] LABS: Appearance Urine UA CLEAR; Bilirubin Urine UA NEGATIVE (NEGATIVE); Color Urine UA YELLOW; Glucose Urine UA NEGATIVE (Negative); Ketones Urine UA NEGATIVE (NEGATIVE); Leukocyte Esterase Urine UA NEGATIVE (NEGATIVE); Nitrite Urine UA NEGATIVE (Negative); Occult Blood Urine UA TRACE-INTACT (Negative); Protein Urine UA 2+ (Negative); Specific Gravity Urine UA 1.025 (1.000-1.035); Urobilinogen Urine UA 0.2 E.U./dL (0.2)
[2023-12-13 20:23] LABS: Bacteria Urine None Seen; RBC Urine 1-5/HPF (0-5/HPF); Squamous Epithelial Cell Urine None Seen (0-5/HPF); Urine Volume 10mL (spun); WBC Urine 0-1/HPF (0-5/HPF)
[2023-12-14 16:07] LABS: Creatinine Urine Random 99.3 mg/dL; Protein (Total) Urine Random 82 mg/dL (0-12); Protein Creatinine Ratio Urine 0.82 GRAM/24H
== END ==
PROVIDERS: Internal Medicine Nephrology; PCP Family Medicine
DX: N18.32 Chronic kidney disease, stage 3b (principal)
CPT/HCPCS: 81001; 82570; 84156; 84166

== ENCOUNTER → 2023-12-23 11:08 | Outpatient (CLI) | payer MEDICARE, OTHER, SELFPAY ==
[2022-10-14 15:56] VITALS: BMI 30.7
--- NOTE | 2023-12-23 11:10 | DI.RAD.S_ITS ---
PROCEDURE: XR DEXA AXIAL SKELETON INDICATIONS: Osteopenia COMPARISON: [facility], CR, XR DEXA AXIAL SKELETON, 11/27/2021, 11:15. FINDINGS: Lumbar Spine: L1-L2. Bone mineral density 0.985 g/cm2, T score 0.1, no significant change. Left Hip: Bone mineral density 0.837 g/cm2, T score -0.9, no significant interval change. Left Femoral Neck: Bone mineral density 0.673 g/cm2, T score -1.6. Right Hip: Bone mineral density 0.792 g/cm2, T score -1.2, no significant oval change. Right Femoral Neck: Bone mineral density 0.642 g/cm2, T score -1.9. Fracture Risk Calculation (when applicable): 10-year fracture risk of a major osteoporotic fracture 13% and of a hip fracture 6.4%. (T score greater or equal to -1.0 to: NORMAL) (T score from -1.1 to -2.4: OSTEOPENIA) (T score less than or equal to -2.5: OSTEOPOROSIS) IMPRESSION: Osteopenia. No significant interval change. Follow-up guidelines as follows: Osteoporosis: Consider a repeat DEXA and Vertebral Fracture Assessment (VFA) exam in 2 years or sooner if medically necessary, to reassess this patient's status. Osteopenia: Consider a repeat DEXA in 2-3 years to reassess this patient's status, or if there is a new clinical indication. Normal: Consider a repeat DEXA in 5 years or sooner, or if there is a new clinical indication. Dictated by: José Miguel Hoffman M.D. on 12/23/2023 at 13:35 Approved by: José Miguel Hoffman M.D. on 12/23/2023 at 13:37
== END ==
PROVIDERS: PCP Family Medicine; Referring Provider Family Medicine; Visit Provider Family Medicine
DX: M85.851 Other specified disorders of bone density and structure, right thigh (principal); M85.852 Other specified disorders of bone density and structure, left thigh
CPT/HCPCS: 77080

== ENCOUNTER → 2024-04-20 10:30 | Outpatient (CLI) | payer MEDICARE, OTHER, SELFPAY ==
[2024-03-10 15:45] VITALS: BMI 30.7
[2024-04-20 20:46] LABS: Alanine Aminotransferase 28 IU/L (<50); Albumin 3.1 g/dL (3.5-5.0); Albumin Globulin Ratio 1.3 (1.0-2.8); Alkaline Phosphatase 69 U/L (38-126); Aspartate Aminotransferase 31 IU/L (17-59); BUN Creatinine Ratio 22.2 (6-22); Bilirubin Total 0.4 mg/dL (0.2-1.3); Blood Urea Nitrogen 41 mg/dL (9-20); Calcium 8.2 mg/dL (8.4-10.2); Carbon Dioxide 12 mmol/L (22-32); Chloride 115 mmol/L (98-107); Cholesterol 145 mg/dL (140-199); Estimated Glomerular Filt Rate 35 mL/min (>60); Globulin 2.3 g/dL (1.7-4.1); Glucose 73 mg/dL (80-110); HDL Cholesterol 87 mg/dL (40-60); HEMOLYSIS < 15 (0-50); Hemoglobin 9.5 g/dL (13.5-17.5); LDL Cholesterol Calculated 46 mg/dL (<100); Mean Corpuscular HGB Conc 31.6 % (30-36); Mean Corpuscular Hemoglobin 32.7 PG (26-34); Mean Corpuscular Volume 103.7 fL (80-100); Platelet Count 165 X10^3/uL (150-400); Potassium 4.3 mmol/L (3.4-5.1); Red Blood Cell Count 2.89 X10^6/uL (4.5-5.9); Red Cell Distribution Width 18.6 % (11.6-14.8); Sodium 136 mmol/L (137-145); Total Protein 5.4 g/dL (6.3-8.2); Triglycerides 62 mg/dL (35-150); White Blood Cell Count 10.1 X10^3/uL (4.5-11.0)
[2024-04-20 21:04] LABS: Add Manual Diff / Slide Review YES
[2024-04-20 21:35] LABS: Neutrophils Absolute Manual 8585 /uL (3000-5900); Total Cells Counted 100
[2024-04-20 21:36] LABS: Anisocytosis 1+; Macrocytosis 1+
[2024-04-20 21:37] LABS: Acanthocytes 1+; Burr Cells 1+; Tear Drop Cells 1+; Toxic Vacuolation Present
[2024-04-20 23:00] LABS: TSH w/ Reflex to FT4 2.95 uIU/mL (0.47-4.68)
== END ==
PROVIDERS: PCP Family Medicine; Visit Provider Family Medicine
DX: K27.9 Peptic ulcer, site unspecified, unspecified as acute or chronic, without hemorrhage or perforation (principal); I12.9 Hypertensive chronic kidney disease with stage 1 through stage 4 chronic kidney disease, or unspecified chronic kidney disease; E78.2 Mixed hyperlipidemia; N18.4 Chronic kidney disease, stage 4 (severe); Z87.19 Personal history of other diseases of the digestive system; K92.2 Gastrointestinal hemorrhage, unspecified; K92.0 Hematemesis; R60.1 Generalized edema; R00.0 Tachycardia, unspecified; M06.9 Rheumatoid arthritis, unspecified; D64.9 Anemia, unspecified
CPT/HCPCS: 80053; 80061; 84443; 85007; 85025

== ENCOUNTER → 2024-05-31 13:31 | Outpatient (CLI) | payer MEDICARE, OTHER, SELFPAY ==
[2024-03-10 15:45] VITALS: BMI 30.7
== END ==
PROVIDERS: PCP Family Medicine; Visit Provider Family Medicine
DX: R30.0 Dysuria (principal)
CPT/HCPCS: 87086

== ENCOUNTER → 2024-07-12 12:34 | Outpatient (CLI) | payer MEDICARE, OTHER, SELFPAY ==
[2024-03-10 15:45] VITALS: BMI 30.7
== END ==
PROVIDERS: PCP Family Medicine; Visit Provider Family Medicine
DX: R30.0 Dysuria (principal)
CPT/HCPCS: 87086

== ENCOUNTER → 2024-08-24 14:37 | Outpatient (CLI) | payer MEDICARE, OTHER, SELFPAY ==
[2024-03-10 15:45] VITALS: BMI 30.7
[2024-08-24 20:22] LABS: Hematocrit 31.1 % (41-53); Hemoglobin 9.7 g/dL (13.5-17.5); Mean Corpuscular HGB Conc 31.1 % (30-36); Mean Corpuscular Hemoglobin 30.1 PG (26-34); Mean Corpuscular Volume 96.6 fL (80-100); Platelet Count 147 X10^3/uL (150-400); Red Blood Cell Count 3.22 X10^6/uL (4.5-5.9); Red Cell Distribution Width 17.7 % (11.6-14.8); White Blood Cell Count 9.5 X10^3/uL (4.5-11.0)
[2024-08-24 20:35] LABS: Alanine Aminotransferase 41 IU/L (<50); Albumin 3.1 g/dL (3.5-5.0); Albumin Globulin Ratio 1.3 (1.0-2.8); Alkaline Phosphatase 134 U/L (38-126); Aspartate Aminotransferase 35 IU/L (17-59); BUN Creatinine Ratio 25.5 (6-22); Bilirubin Total 0.4 mg/dL (0.2-1.3); Blood Urea Nitrogen 47 mg/dL (9-20); Calcium 9.4 mg/dL (8.4-10.2); Carbon Dioxide 18 mmol/L (22-32); Chloride 113 mmol/L (98-107); Cholesterol 156 mg/dL (140-199); Estimated Glomerular Filt Rate 35 mL/min (>60); Globulin 2.4 g/dL (1.7-4.1); Glucose 112 mg/dL (80-110); HDL Cholesterol 82 mg/dL (40-60); HEMOLYSIS < 15 (0-50); LDL Cholesterol Calculated 59 mg/dL (<100); Potassium 4.2 mmol/L (3.4-5.1); Sodium 136 mmol/L (137-145); Total Protein 5.5 g/dL (6.3-8.2); Triglycerides 74 mg/dL (35-150)
[2024-08-24 20:37] LABS: HEMOLYSIS 16 (0-50); Iron 44 ug/dL (49-181)
[2024-08-24 20:44] LABS: Add Manual Diff / Slide Review YES
[2024-08-24 20:49] LABS: Neutrophils Absolute Manual 7220 /uL (3000-5900); Percent Iron Saturation 15 % (20-50); Total Cells Counted 100; Total Iron Binding Capacity 292 ug/dL (261-462); Transferrin 265 mg/dL (206-381)
[2024-08-24 20:50] LABS: Anisocytosis 2+; Tear Drop Cells 1+
[2024-08-24 20:51] LABS: Rouleaux 1+; Toxic Vacuolation Present
[2024-08-24 21:09] LABS: TSH w/ Reflex to FT4 3.78 uIU/mL (0.47-4.68)
[2024-08-24 21:28] LABS: Vitamin B12 971 pg/mL (239-931)
== END ==
PROVIDERS: PCP Family Medicine; Visit Provider Family Medicine
DX: I12.9 Hypertensive chronic kidney disease with stage 1 through stage 4 chronic kidney disease, or unspecified chronic kidney disease; N18.4 Chronic kidney disease, stage 4 (severe); D64.9 Anemia, unspecified; L03.311 Cellulitis of abdominal wall; E78.2 Mixed hyperlipidemia; M06.9 Rheumatoid arthritis, unspecified; Z86.718 Personal history of other venous thrombosis and embolism
CPT/HCPCS: 80053; 80061; 82607; 83540; 83550; 84443; 85007; 85025

== ENCOUNTER → 2024-10-11 14:00 | Outpatient (CLI) | payer MEDICARE, OTHER, SELFPAY ==
[2024-10-09 14:19] VITALS: BMI 30.7
[2024-10-11 19:35] LABS: Appearance Urine UA CLOUDY; Bilirubin Urine UA NEGATIVE (NEGATIVE); Color Urine UA YELLOW; Glucose Urine UA NEGATIVE (Negative); Ketones Urine UA NEGATIVE (NEGATIVE); Leukocyte Esterase Urine UA 2+ (NEGATIVE); Nitrite Urine UA NEGATIVE (Negative); Occult Blood Urine UA 3+ (Negative); Protein Urine UA 2+ (Negative); Specific Gravity Urine UA 1.025 (1.000-1.035); Urobilinogen Urine UA 0.2 E.U./dL (0.2)
[2024-10-11 19:50] LABS: Bacteria Urine Many (>30); Culture Indicated Urine Specimen Cultured; RBC Urine 10-30/HPF (0-5/HPF); Squamous Epithelial Cell Urine None Seen (0-5/HPF); Urine Volume 10mL (spun); WBC Urine >100/HPF (0-5/HPF)
== END ==
PROVIDERS: PCP Family Medicine; Visit Provider Family Medicine
DX: R30.0 Dysuria (principal); Z96.0 Presence of urogenital implants
CPT/HCPCS: 81001; 87077; 87086; 87186

== ENCOUNTER → 2024-10-19 11:00 | Outpatient (CLI) | payer MEDICARE, OTHER, SELFPAY ==
[2024-10-09 14:19] VITALS: BMI 30.7
[2024-10-19 19:45] LABS: Hematocrit 35.3 % (41-53); Hemoglobin 10.9 g/dL (13.5-17.5); Mean Corpuscular HGB Conc 30.8 % (30-36); Mean Corpuscular Hemoglobin 32.3 PG (26-34); Mean Corpuscular Volume 104.9 fL (80-100); Platelet Count 125 X10^3/uL (150-400); Red Blood Cell Count 3.37 X10^6/uL (4.5-5.9)
[2024-10-19 19:48] LABS: Add Manual Diff / Slide Review YES
[2024-10-19 20:10] LABS: Neutrophils Absolute Manual 5920 /uL (3000-5900); Total Cells Counted 100
[2024-10-19 20:11] LABS: Anisocytosis 2+; Platelet Estimate Decreased on smear
[2024-10-19 20:22] LABS: Alanine Aminotransferase 57 IU/L (<50); Albumin 3.1 g/dL (3.5-5.0); Albumin Globulin Ratio 1.4 (1.0-2.8); Alkaline Phosphatase 96 U/L (38-126); Aspartate Aminotransferase 44 IU/L (17-59); BUN Creatinine Ratio 24.8 (6-22); Bilirubin Total 0.4 mg/dL (0.2-1.3); Blood Urea Nitrogen 51 mg/dL (9-20); Calcium 8.8 mg/dL (8.4-10.2); Chloride 119 mmol/L (98-107); Cholesterol 144 mg/dL (140-199); Estimated Glomerular Filt Rate 30 mL/min (>60); Globulin 2.2 g/dL (1.7-4.1); Glucose 58 mg/dL (80-110); HDL Cholesterol 65 mg/dL (40-60); HEMOLYSIS 32 (0-50); LDL Cholesterol Calculated 59 mg/dL (<100); Potassium 4.5 mmol/L (3.4-5.1); Sodium 140 mmol/L (137-145); Total Protein 5.3 g/dL (6.3-8.2); Triglycerides 99 mg/dL (35-150)
[2024-10-19 20:59] LABS: Carbon Dioxide 9 mmol/L (22-32)
== END ==
PROVIDERS: PCP Family Medicine; Visit Provider Family Medicine
DX: I12.9 Hypertensive chronic kidney disease with stage 1 through stage 4 chronic kidney disease, or unspecified chronic kidney disease (principal); D64.9 Anemia, unspecified; I48.91 Unspecified atrial fibrillation; F11.90 Opioid use, unspecified, uncomplicated; E78.2 Mixed hyperlipidemia; N39.0 Urinary tract infection, site not specified; R06.02 Shortness of breath; N18.4 Chronic kidney disease, stage 4 (severe); I10 Essential (primary) hypertension
CPT/HCPCS: 80053; 80061; 85007; 85025

== ENCOUNTER → 2024-12-14 13:15 | Outpatient (CLI) | payer MEDICARE, OTHER, SELFPAY ==
[2024-10-09 14:19] VITALS: BMI 30.7
[2024-12-14 19:05] LABS: Albumin 3.2 g/dL (3.5-5.0); BUN Creatinine Ratio 24.4 (6-22); Blood Urea Nitrogen 63 mg/dL (9-20); Calcium 8.5 mg/dL (8.4-10.2); Carbon Dioxide 22 mmol/L (22-32); Chloride 111 mmol/L (98-107); Estimated Glomerular Filt Rate 23 mL/min (>60); Glucose 91 mg/dL (70-99); HEMOLYSIS < 15 (0-50); Phosphorous 4.2 mg/dL (2.3-3.7); Potassium 4.3 mmol/L (3.4-5.1); Sodium 141 mmol/L (137-145)
[2024-12-14 19:58] LABS: Phosphorous 4.3 mg/dL (2.3-3.7)
== END ==
PROVIDERS: PCP Family Medicine; Visit Provider Internal Medicine Nephrology
DX: N18.32 Chronic kidney disease, stage 3b (principal)
CPT/HCPCS: 80069; 84100

== ENCOUNTER → 2025-01-04 11:15 | Outpatient (CLI) | payer MEDICARE, OTHER, SELFPAY ==
[2024-10-09 14:19] VITALS: BMI 30.7
[2025-01-04 19:23] LABS: Hematocrit 34.3 % (41-53); Hemoglobin 10.7 g/dL (13.5-17.5); Mean Corpuscular HGB Conc 31.2 % (30-36); Mean Corpuscular Hemoglobin 32.9 PG (26-34); Mean Corpuscular Volume 105.5 fL (80-100); Platelet Count 180 X10^3/uL (150-400); Red Blood Cell Count 3.25 X10^6/uL (4.5-5.9); Red Cell Distribution Width 17.5 % (11.6-14.8); White Blood Cell Count 8.5 X10^3/uL (4.5-11.0)
[2025-01-04 19:25] LABS: Add Manual Diff / Slide Review YES
[2025-01-04 19:27] LABS: BUN Creatinine Ratio 24.9 (6-22); Blood Urea Nitrogen 68 mg/dL (9-20); Calcium 8.6 mg/dL (8.4-10.2); Carbon Dioxide 21 mmol/L (22-32); Chloride 111 mmol/L (98-107); Estimated Glomerular Filt Rate 22 mL/min (>60); Glucose 108 mg/dL (70-99); HEMOLYSIS < 15 (0-50); Phosphorous 4.2 mg/dL (2.3-3.7); Potassium 4.3 mmol/L (3.4-5.1); Sodium 140 mmol/L (137-145)
[2025-01-04 19:52] LABS: Anisocytosis 2+; Neutrophils Absolute Manual 6375 /uL (3000-5900); Total Cells Counted 100
[2025-01-04 19:53] LABS: Macrocytosis 1+
== END ==
PROVIDERS: PCP Family Medicine; Visit Provider Internal Medicine Nephrology
DX: N18.4 Chronic kidney disease, stage 4 (severe) (principal)
CPT/HCPCS: 80069; 85007; 85025

== ENCOUNTER → 2025-02-08 13:00 | Outpatient (CLI) | payer MEDICARE, OTHER, SELFPAY ==
[2025-02-07 15:32] VITALS: BMI 30.7
[2025-02-08 19:58] LABS: Appearance Urine UA TURBID; Color Urine UA OTHER; Protein Urine UA 3+ (Negative)
[2025-02-08 19:59] LABS: Bilirubin Urine UA Negative (NEGATIVE); Glucose Urine UA NEGATIVE (Negative); Ketones Urine UA NEGATIVE (NEGATIVE); Leukocyte Esterase Urine UA 4+ (NEGATIVE); Nitrite Urine UA NEGATIVE (Negative); Occult Blood Urine UA 3+ (Negative); Urine Volume Low Vol <1mL unspun; Urobilinogen Urine UA 0.2 E.U./dL (0.2)
[2025-02-08 20:01] LABS: Bacteria Urine Many (>30); RBC Urine 10-30/HPF (0-5/HPF); Squamous Epithelial Cell Urine None Seen (0-5/HPF); Transitional Epi Cells Urine 0-1/HPF (0-5/HPF); WBC Urine >100/HPF (0-5/HPF)
[2025-02-08 20:02] LABS: Culture Indicated Urine Specimen Cultured
== END ==
PROVIDERS: PCP Family Medicine; Visit Provider Family Medicine
DX: D64.9 Anemia, unspecified (principal); I48.91 Unspecified atrial fibrillation; F11.90 Opioid use, unspecified, uncomplicated; I12.9 Hypertensive chronic kidney disease with stage 1 through stage 4 chronic kidney disease, or unspecified chronic kidney disease; N18.4 Chronic kidney disease, stage 4 (severe); E78.2 Mixed hyperlipidemia; L89.151 Pressure ulcer of sacral region, stage 1; N39.0 Urinary tract infection, site not specified
CPT/HCPCS: 81001; 87070; 87086; 87147; 87205